=== PATIENT | female | born 1990 | race Caucasian/White ===

== ENCOUNTER 2022-06-30 07:21 | Emergency (ER) | payer OTHER, SELFPAY ==
--- NOTE | ~2022-06-30 | US_ITS ---
EXAMINATION: US ABDOMEN LIMITED CLINICAL INFORMATION: Better evaluate gallbladder. COMPARISON: CT earlier today TECHNIQUE: Real-time imaging of the gallbladder. FINDINGS: GALLBLADDER: Echogenic mobile gallstones are present. Gallbladder wall upper limits of normal in thickness, 3 mm. No reported sonographic Centeno's sign. COMMON BILE DUCT: Normal in caliber measuring 0.4 cm in diameter. US/US abdomen limited IMPRESSION: Gallstones. No reported sonographic Centeno's sign.
--- NOTE | ~2022-06-30 | US_ITS ---
EXAMINATION: US PELVIS CLINICAL INFORMATION: Better evaluation of ovaries COMPARISON: CT earlier today TECHNIQUE: Ultrasound of the pelvis is performed using transabdominal transducer. The patient declined endovaginal imaging. FINDINGS: Uterus: The uterus is anteverted and anteflexed and measures 9.0 x 2.8 x 4.9 cm. The double wall endometrial thickness is 0.6 mm. The uterus is smooth in contour and has normal myometrial echogenicity. No visible fibroid. Adnexa: Neither ovary is seen transabdominally but the right adnexal cyst seen on prior CT scan is noted. It measures 8.8 cm in greatest dimension. It has a simple appearance with no septations or mural nodules. US/US pelvic complete IMPRESSION: 8.8 cm right probable benign adnexal cyst. Recommend follow-up US in 3-6 months. Note: This recommendation does not apply to premenarchal patients and to those with increased risk (genetic, family history, elevated tumor markers or other high-risk factors) of ovarian cancer. Reference: Radiology. 2019 Nov; 293(2):359-371
--- NOTE | ~2022-06-30 | CT_ITS ---
EXAMINATION: CT abdomen pelvis w IV con CLINICAL INFORMATION: Bilateral flank pain. COMPARISON: Prior CT scan from 06/23/2013 TECHNIQUE: Multidetector volumetric imaging was performed from the superior aspect of the liver through the pubic symphysis 100 mL of Omnipaque 350 injected Sagittal and coronal reformatted images were obtained on the technologist's workstation. This CT examination was performed using dose optimization techniques as appropriate, variously including the following: *Automated exposure control *Adjustment of mA and/or kV according to patient size (this includes techniques or standardized protocols for targeted exams where dose is matched to indication/reason for exam; i.e. extremities or head) *Use of iterative reconstruction technique DLP: 1008 mGy-cm FINDINGS: LOWER THORAX: Included lung bases are clear. HEPATOBILIARY: No focal hepatic lesions. No biliary ductal dilatation. GALLBLADDER: Gallbladder is distended. There are probably tiny layering gallstones. SPLEEN: Spleen is normal in size. PANCREAS: No focal mass or ductal dilatation. STOMACH AND GASTROINTESTINAL TRACT: Stomach is grossly unremarkable. There is no bowel distention or thickening. Appendix not visualized might have been removed. There are suture lines in the posterior wall of the cecum. ADRENALS: No adrenal nodules. KIDNEYS/URETERS: No hydronephrosis, stones or solid mass lesions. URINARY BLADDER: Partially decompressed. PELVIC VISCERA: There is a cystic mass in the pelvis right of midline measures 7 x 6.3 cm most likely of right ovarian origin not well evaluated on CT scan, this may require correlation with follow-up ultrasound. PERITONEUM: No free air or fluid. LYMPH NODES: No lymphadenopathy. VASCULAR:Abdominal aorta normal in size, no aneurysm found. BONES, ABDOMINAL WALL AND SOFT TISSUES: Age-appropriate changes of the spine and skeletal system, no destructive osteolytic or osteosclerotic bone lesion found CT/CT abdomen pelvis w IV con IMPRESSION: * No CT evidence of kidney stones or hydronephrosis. * There is a cystic mass in the pelvis right of midline 7 cm most likely of right ovarian origin, not well evaluated on CT scan, recommend attention to correlation with follow-up ultrasound. * Distended gallbladder, there are probably tiny layering gallstones. If patient has pain in the right upper quadrant, this also can be evaluated with ultrasound.
[2022-06-30 07:35] VITALS: BP 147/86; PULSE 102; RESP 14; TEMP 36.6; O2SAT 100; BMI 34.3
--- NOTE | 2022-06-30 08:00 | ED_ITS ---
HPI - General Adult General Chief complaint: Back Pain/Injury Stated complaint: Lower back pain/? Time Seen by Provider: 06/30/22 07:57 Source: patient Mode of arrival: ambulatory Limitations: no limitations History of Present Illness HPI narrative: Patient is a 32 year old assigned female at with no reported medical history presenting to the emergency department today with low back pain. Patient states that for the last 2 weeks she has had low back pain. Patient states that she took 2 at home tests and they were positive but she took another one and now it is negative. Patient states that she passed what looked like a blood clot earlier today and has had light vaginal bleeding since. Patient denies any dizziness, lightheadedness, abdominal pain, nausea, vomiting, fever, chills, blurry vision, double vision, loss of vision, chest pain, difficulty breathing, shortness of breath, night sweats, pain with urination, increased urinary frequency, increased urinary urgency, blood in her urine or stool, syncope or a near syncopal episode, recent trauma or falls, bowel incontinence, bladder incontinence, bowel retention, bladder retention, or any other complaints at this time. Onset (ago): week(s) (2) Location: back Severity: mild Severity scale (1-10): 3 Quality: aching and dull Pain Consistency: constant Relieving factors: none Exacerbating factors: none Associated symptoms: other (vaginal bleeding) Treatments prior to arrival: none Related Data Previous Rx's Medication Instructions Recorded cephalexin 500 mg capsule 500 mg PO Q6H 7 days #28 caps 06/30/22 Allergies Allergy/AdvReac Type Severity Reaction Status Date / Time No Known Allergies Allergy Unverified 02/29/20 15:58 Review of Systems Constitutional: Constitutional: Reports no additional constitutional complaints, Denies chills, Denies fever(s) and Denies night sweats Eyes: Eyes: Reports no additional eye complaints, Denies blurry vision, Denies change in vision, Denies diplopia, Denies eye discharge, Denies loss of vision and Denies eye pain ENT: Denies dizziness Cardiovascular: Cardiovascular: Reports no additional cardiovascular complaints, Denies chest pain, Denies lightheadedness, Denies Loss of Consciousness and Denies dyspnea Respiratory: Respiratory: Reports no additional respiratory complaints and Denies dyspnea Gastrointestinal: Gastrointestinal: Reports no additional gastrointestinal complaints, Denies abdominal pain, Denies melena, Denies hematochezia, Denies change in bowel habits and Denies change in stool character Genitourinary: Genitourinary: Denies hematuria, Denies urinary frequency, Denies dysuria, Denies urinary incontinence, Denies urinary hesitancy and Denies urinary urgency Comments: vaginal bleeding Musculoskeletal: Musculoskeletal: Reports no additional musculoskeletal complaints, Reports back pain, Denies numbness and Denies tingling Neurologic: Denies dizziness, Denies loss of vision, Denies numbness and Denies tingling Psychiatric: Psychiatric: Reports no additional psychiatric complaints Endocrine: Endocrine: Reports no additional endocrine complaints Hematologic/Lymphatic: Hematologic/Lymphatic: Reports no additional h ematologic/lymphatic complaints Allergic/Immunologic: Allergic/Immunologic: Reports no additional allergic/immunologic complaints PMFSH Past Medical History Attestation statement: The following information was validated with the patient. Source: old records reviewed and nursing notes reviewed Social History Social History Alcohol intake: never Smoked in Last 30 Days: No Substance Use Type: Marijuana Advance Directives: No Advance Directives Information Provided: No Patient : No Physical Exam ED Vital Signs: Vital Signs - 24 hr 06/30/22 07:35 06/30/22 10:06 06/30/22 12:21 Temperature 97.9 F 98.1 F 98.0 F Pulse Rate 102 H 93 96 Respiratory Rate 14 18 18 Blood Pressure 147/86 H 139/90 H 140/88 H Pulse Oximetry 100 97 98 Oxygen Delivery Method Room Air Room Air Room Air BMI result Body Mass Index 34.3 Const General: cooperative, no acute distress, alert and awake Nutritional Appearance: well nourished Orientation/consciousness: patient oriented x3 Limitations: no limitations [facility] Head: Yes normal to inspection and Yes atraumatic Ears: hearing grossly normal bilaterally and external ears normal General nose exam: Normal external nose present, no nasal discharge noted and no epistaxis Face and sinus: Yes normal facial exam, No abrasion and No laceration Mouth: Normal oral and palatal mucosa present, no drooling and no muffled voice Eyes General: appearance normal, both eyes and all related structures Periorbital: periorbital findings normal Eyelids: Yes eyelids normal Conjunctivae: conjunctivae normal Pupils: Equal, round and reactive pupils present EOM: EOMs intact bilaterally Neck Neck: Yes normal visual inspection, Yes full ROM and Yes no lymphadenopathy Chest Chest palpation & inspection: normal inspection of the chest Resp Effort & Inspection: normal respiratory effort and able to speak in complete sentences Auscultation: clear to auscultation bilaterally Cardio Rate: regular rate Rhythm: regular rhythm GI Inspection: Yes normal to inspection Palpation (GI): Soft to palpation, not firm, nontender, no guarding and not rigid Neuro General: patient oriented x3 and moves all extremities Cranial nerves: Yes Equal, round and reactive pupils present Cognition (Neuro): normal cognition Motor exam (neuro): 5/5 motor strength present throughout Sensory Exam: Normal double simultaneous stimulation for sensation Coordination: [id number] test normal Extrem General: Yes normal to inspection, Yes full ROM and Yes capillary refill normal Psych Appearance: grossly normal Mental Status: mental status grossly normal Affect: normal affect Attitude: cooperative Thought process: Normal thought process present Thought content: Normal thought content present Insight: Good insight present (Psych) Medications Administered Discontinued Medications Generic Name Dose Route Start Last Admin Trade Name Imer PRN Reason Stop Dose Admin Sodium Chloride 1,000 mls @ 999 mls/hr 06/30/22 09:15 06/30/22 11:14 Ns IV 06/30/22 10:15 Infused .Q1H1M KENZIE Infusion Iohexol 100 ml 06/30/22 09:38 06/30/22 09:39 Iohexol 350 Mg/Ml 100 Ml Infus..Btl IV 06/30/22 09:39 85 ml ONCE ONE Administration Ketorolac Tromethamine 15 mg 06/30/22 11:58 06/30/22 12:14 Ketorolac Tromethamine 15 Mg/Ml Vial IVPUSH 06/30/22 11:59 15 mg ONCE ONE Administration Medical Decision Making Medical Decision Making [facility] Narrative: Patient is a 32 year old assigned female at with no reported medical history presenting to the emergency department today with low back pain. Cecilia ent's physical exam was unremarkable. Patient appeared non-toxic and comfortable. Patient's blood work showed an elevated WBC count of 14.1 but was otherwise unremarkable. Patient's urine showed a possible urinary tract infection. Patient's abdominal / pelvic CT showed a cystic mass in the pelvis ri ght of midline that the radiologist recommended further evaluating with an US as well as gallstones in the gallbladder the radiologist recommended further evaluating with an US. Patient's gallbladder US showed stones in the gallbladder but no signs of any acute processes. Patient's pelvis US showed a 8.8cm right adnexal cyst the radiologist recommends US follow up in 3-6 months. Patient's clinical presentation is most consistent with a right ovarian cyst and possible UTI. Patient is afebrile. Patient is not septic (@1200). I explained my physical exam findings as well as all test results to the patient. I answered all questions asked by the patient. I stressed the importance of the patient taking her medication as prescribed. I stressed the importance of the patient following up with her primary care provider and an OBGYN. I stressed the importance of the patient returning to the emergency department immediately if her symptoms were to worsen or if she were to develop any dizziness, shortness of breath, difficulty breathing, chest pain, blurry vision, loss of vision, nausea, vomiting, abdominal pain, fever, chills, back pain, or any other complaints. Patient verbalized agreement and understanding with this treatment plan and discharge. Differential Diagnosis Differential Diagnoses: The differential diagnosis associated with the presentation includes miscarriage, ovarian cyst, UTI Lab Data MDM Lab Attestation statement: I reviewed the patient's lab results. 06/30/22 08:21 06/30/22 08:21 Labs: Lab Results 06/30/22 06/30/22 06/30/22 Range/Units 08:21 08:21 09:45 WBC 14.1 H (4.8-10.8) X10*3/uL RBC 4.66 (4.20-5.50) X10*6/uL Hgb 13.0 (12.0-16.0) g/dl Hct 41.4 (37.0-47.0) % MCV 88.8 (80.0-98.0) fL MCH 27.9 (27.0-33.0) pg MCHC 31.4 (31.0-35.0) g/dl RDW 13.4 (11.0-16.0) % Plt Count 322 (160-400) X10*3/uL MPV 9.5 (9.4-12.3) fL Immature Gran % (Auto) 0.4 (0.0-0.4) % Neut % (Auto) 75.2 H (45-73) % Lymph % (Auto) 17.4 L (20-40) % [place] % (Auto) 5.6 (2-11) % Eos % (Auto) 1.0 (0-4) % Baso % (Auto) 0.4 (0-2) % Lymph # (Auto) 2.5 (1.2-4.9) X10*3/uL [place] # (Auto) 0.8 (0.1-1.2) X10*3/uL Eos # (Auto) 0.1 (0.0-0.4) X10*3/uL Baso # (Auto) 0.1 (0.0-0.2) X10*3/uL Abs Immat Gran (auto) 0.06 H (0.00-0.03) X10*3/uL Absolute Neuts (auto) 10.6 H (2.0-8.3) x10*3/uL Absolute Nucleated RBC 0.000 (0.0-0.012) X10*3/uL Nucleated RBC % (auto) 0.0 (0.0-0.2) /100WBC Sodium 140 (135-145) mmol/L Potassium 4.1 (3.3-5.1) mmol/L Chloride 104 (96-108) mmol/L Carbon Dioxide 26 (22-29) mmol/L Anion Gap 14 (12-20) BUN 9 (9-16) mg/dL Creatinine 0.66 (0.5-1.4) mg/dL Estim Creat Clear Calc 133.5 Estimated GFR > 60 Random Glucose 91 (60-115) mg/dL Calcium 8.9 (8.4-10.2) mg/dL Total Bilirubin 0.5 (0.0-1.0) mg/dL AST 65 H (5-31) U/L ALT 116 H (0-31) U/L Alkaline Phosphatase 80 (39-117) U/L Total Protein 7.5 (6.5-8.0) g/dL Albumin 3.9 (3.5-5.0) g/dL Beta HCG, Quant < 2 mIU/mL Urine Color RED Urine Appearance Cloudy Urine pH 6.0 (5.0-9.0) Ur Specific [place] 1.015 (1.005-1.025) Urine Protein Negative (Neg-Trace) mg/dL Urine Glucose (UA) Negative (Negative) mg/dL Urine Ketones Negative (Negative) mg/dL Urine Blood Large (3+) H (Negative) Urine Nitrite Negative (Negative) Ur Leukocyte Esterase Moderate (2+) H (Negative) Urine RBC >20 H (0-2) /HPF Urine WBC 6-10 (0-5) /HPF Ur Squamous Epith Cells 0-2 (0-2) /HPF Urine Bacteria Trace (None Seen) Hyaline Casts 0-2 (0-2) /LPF Radiology Impression Discussion of test interpretation with radiology: I have reviewed the radiologist's reading. Radiologist Impression: My interpretation is in agreement with the radiologist's impression of these imaging studies. EXAMINATION: CT abdomen pelvis w IV con CLINICAL INFORMATION: Bilateral flank pain. COMPARISON: Prior CT scan from 06/23/2013 TECHNIQUE: Multidetector volumetric imaging was performed from the superior aspect of the liver through the pubic symphysis 100 mL of Omnipaque 350 injected? Sagittal and coronal reformatted images were obtained on the technologist's workstation. ? This CT examination was performed using dose optimization techniques as appropriate, variously including the following: *Automated exposure control *Adjustment of mA and/or kV according to patient size (this includes techniques or standardized protocols for targeted exams where dose is matched to indication/reason for exam; i.e. extremities or head) *Use of iterative reconstruction technique DLP: 1008 mGy-cm FINDINGS: LOWER THORAX: Included lung bases are clear. HEPATOBILIARY: No focal hepatic lesions. No biliary ductal dilatation. GALLBLADDER: Gallbladder is distended. There are probably tiny layering gallstones. SPLEEN: Spleen is normal in size. PANCREAS: No focal mass or ductal dilatation. STOMACH AND GASTROINTESTINAL TRACT: Stomach is grossly unremarkable. There is no bowel distention or thickening. Appendix not visualized might have been removed. There are suture lines in the posterior wall of the cecum. ADRENALS: No adrenal nodules. KIDNEYS/URETERS: No hydronephrosis, stones or solid mass lesions. URINARY BLADDER: Partially decompressed. PELVIC VISCERA: There is a cystic mass in the pelvis right of midline measures 7 x 6.3 cm most likely of right ovarian origin not well evaluated on CT scan, this may require correlation with follow-up ultrasound. PERITONEUM: No free air or fluid. LYMPH NODES: No lymphadenopathy. VASCULAR:Abdominal aorta normal in size, no aneurysm found. BONES, ABDOMINAL WALL AND SOFT TISSUES: Age-appropriate changes of the spine and skeletal system, no destructive osteolytic or osteosclerotic bone lesion found CT/CT abdomen pelvis w IV con IMPRESSION: ? *? No CT evidence of kidney stones or hydronephrosis. ? *? There is a cystic mass in the pelvis right of midline 7 cm most likely of right ovarian origin, not well evaluated on CT scan, recommend attention to correlation with follow-up ultrasound. ? *? Distended gallbladder, there are probably tiny layering gallstones. If patient has pain in the right upper quadrant, this also can be evaluated with ultrasound. Dictated By: Pérez Almonte MD Signed By: Electronically signed by Pérez Almonte MD 06/30/22 1016 EXAMINATION: US ABDOMEN LIMITED CLINICAL INFORMATION: Better evaluate gallbladder. COMPARISON: CT earlier today TECHNIQUE: Real-time imaging of the gallbladder. FINDINGS: GALLBLADDER: Echogenic mobile gallstones are present. Gallbladder wall upper limits of normal in thickness, 3 mm. No reported sonographic Centeno's sign. COMMON BILE DUCT: Normal in caliber measuring 0.4 cm in diameter. US/US abdomen limited IMPRESSION: Gallstones. No reported sonographic Centeno's sign. Dictated By: Leland Avery MD Signed By: Electronically signed by Leland Avery MD 06/30/22 1143 EXAMINATION:? US PELVIS CLINICAL INFORMATION:? Better evaluation of ovaries COMPARISON: CT earlier today TECHNIQUE: Ultrasound of the pelvis is performed using transabdominal transducer. The patient declined endovaginal imaging. FINDINGS: Uterus: The uterus is anteverted and anteflexed and measures 9.0 x 2.8 x 4.9 cm.? The double wall endometrial thickness is 0.6 mm.? The uterus is smooth in contour and has normal myometrial echogenicity. ? No visible fibroid. Adnexa: Neither ovary is seen transabdominally but the right adnexal cyst seen on prior CT scan is noted. It measures 8.8 cm in greatest dimension. It has a simple appearance with no septations or mural nodules. US/US pelvic complete IMPRESSION: 8.8 cm right probable benign adnexal cyst. Recommend follow-up US in 3-6 months. ? Note: This recommendation does not apply to premenarchal patients and to those with increased risk (genetic, family history, elevated tumor markers or other high-risk factors) of ovarian cancer. Reference: Radiology. 2019 Apr; 293(2):359-371 Dictated By: Leland Avery MD Signed By: Electronically signed by Leland Avery MD 06/30/22 1149 Discharge Plan Discharge Clinical Impression: Urinary tract infection, Ovarian cyst Patient Disposition: Home, Self-Care Instructions: Ovarian Cyst (ED), Urinary Tract Infection in Women (ED) Additional Instructions: Follow up with your primary care provider and an OBGYN. Return to the emergency department immediately if your symptoms worsen or if you develop any dizziness, shortness of breath, difficulty breathing, chest pain, blurry vision, loss of vision, nausea, vomiting, abdominal pain, fever, chills, back pain, or any other complaints. Prescriptions: New cephalexin 500 mg capsule 500 mg PO Q6H 7 Days Qty: 28 0RF Referrals: [facility] Family Medicine [Provider Group] (Call to establish and follow up with a primary care provider, if you already have a primary care provider, please follow up with them. ) [facility] Primary Care, [place] [Provider Group] (Call to establish and follow up with a primary care provider, if you already have a primary care provider, please follow up with them. ) [facility] Primary Care,Iain [Provider Group] (Call to establish and follow up with a primary care provider, if you already have a primary care provider, please follow up with them. ) Joe Braga MD [Physician] - (Call to establish and follow up with an OBGYN. ) Interventions: ED Discharge Assessment Last Done: 06/30/22 12:25 Print Language: Urdu
--- NOTE | 2022-06-30 08:25 | PC.NURSE ---
patient a/ox4 . dimitris . heart rate regular at 99 beats per minute . breathing even and unlabored . lungs clear throughout . skin pink warm and dry . abdomen soft . positive bowel sounds in all four quadrants . rebound tenderness noted bilaterally in right and left flank area 8 out of 10 rajan reported by patient .patient reports only presenting for pain in left flank area for last two weeks . labs obtained and sent . patient aware of need of urine . patient aware of plan of care .
[2022-06-30 08:26] LABS: MANUAL DIFF FLAG NO
[2022-06-30 08:27] LABS: Basophils Absolute Auto 0.1 X10*3/uL (0.0-0.2); Basophils Percent Auto 0.4 % (0-2); Eosinophils Absolute Auto 0.1 X10*3/uL (0.0-0.4); Hematocrit 41.4 % (37.0-47.0); Imm Gran Abs Auto 0.06 X10*3/uL (0.00-0.03); Imm Gran Pct Auto 0.4 % (0.0-0.4); Lymphocytes Absolute Auto 2.5 X10*3/uL (1.2-4.9); Lymphocytes Percent Auto 17.4 % (20-40); Mean Corpuscular HGB Conc 31.4 g/dl (31.0-35.0); Mean Corpuscular Hemoglobin 27.9 pg (27.0-33.0); Mean Corpuscular Volume 88.8 fL (80.0-98.0); Mean Platelet Volume 9.5 fL (9.4-12.3); Monocytes Absolute Auto 0.8 X10*3/uL (0.1-1.2); Monocytes Percent Auto 5.6 % (2-11); Neutrophils Absolute Auto 10.6 x10*3/uL (2.0-8.3); Neutrophils Percent Auto 75.2 % (45-73); Platelet Count 322 X10*3/uL (160-400); Red Blood Count 4.66 X10*6/uL (4.20-5.50); Red Cell Distribution Width 13.4 % (11.0-16.0); White Blood Count 14.1 X10*3/uL (4.8-10.8)
[2022-06-30 08:52] LABS: Alanine Aminotransferase 116 U/L (0-31); Albumin Level 3.9 g/dL (3.5-5.0); Alkaline Phosphatase 80 U/L (39-117); Anion Gap 14 (12-20); Aspartate Amino Transferase 65 U/L (5-31); Bilirubin Total 0.5 mg/dL (0.0-1.0); Blood Urea Nitrogen 9 mg/dL (9-16); Calcium 8.9 mg/dL (8.4-10.2); Carbon Dioxide 26 mmol/L (22-29); Chloride 104 mmol/L (96-108); Creatinine Clr Calc Pharmacy 133.5; Estimated Glomerular Filt Rate > 60; Glucose Random 91 mg/dL (60-115); Potassium 4.1 mmol/L (3.3-5.1); Sodium 140 mmol/L (135-145); Total Protein 7.5 g/dL (6.5-8.0)
[2022-06-30 08:59] LABS: HCG Quantitative < 2 mIU/mL
[2022-06-30] MEDS: iohexoL 350 MG/ML 100 ML INFUS..BTL IV (09:39)
--- NOTE | 2022-06-30 09:45 | PC.NURSE ---
DR Dipti Braga at bedside for consult and exam . patient aware of plan of care .
[2022-06-30 10:06] VITALS: BP 139/90; PULSE 93; RESP 18; TEMP 36.7; O2SAT 97
[2022-06-30] MEDS: 0.9 % Sodium Chloride 1,000 ML 999 ML IV (10:08)
[2022-06-30 10:09] LABS: Appearance Urine Cloudy; Glucose Urine UA Negative (Negative); Leukocyte Esterase Urine Moderate (2+) (Negative); Nitrite Urine Negative (Negative); Specific Gravity - Urine 1.015 (1.005-1.025); UMIC TRIGGER UACC YES; Urine Blood Large (3+) (Negative); Urine Ketones Negative (Negative); Urine Protein Negative (Neg-Trace)
[2022-06-30 10:10] LABS: Color Urine RED
[2022-06-30 10:27] LABS: RBC Urine >20 /HPF (0-2)
[2022-06-30 10:28] LABS: Bacteria Urine Trace (None Seen); Hyaline Casts Urine 0-2 /LPF (0-2); Squamous Epithelial Cell Urine 0-2 /HPF (0-2); UACC Culture Trigger YES
[2022-06-30] MEDS: Ketorolac Tromethamine 15 MG/ML VIAL IVPUSH (12:14)
[2022-06-30 12:21] VITALS: BP 140/88; PULSE 96; RESP 18; TEMP 36.7; O2SAT 98
--- NOTE | 2022-06-30 12:23 | PC.NURSE ---
Patient a/ox4 . VSS . Went over discharge instructions as ordered by provider . patient given contact information for follow up with OBGYN . Patient to return if symptoms worsen .no questions at this time .
== END 2022-06-30 12:25 | disposition home or self-care (01) ==
PROVIDERS: Physician Assistant Medical; Emergency Provider Emergency Medicine
DX: N80.101 Endometriosis of right ovary, unspecified depth (principal); N39.0 Urinary tract infection, site not specified; N93.9 Abnormal uterine and vaginal bleeding, unspecified; M54.50 Low back pain, unspecified; R10.2 Pelvic and perineal pain; Z79.899 Other long term (current) drug therapy
CPT/HCPCS: 36415; 74177; 76705; 76856; 80053; 81001; 81003; 84702; 85025; 87086; 87088; 87186; 96361; 96374; 99284; 99285; J1885; Q9967

== ENCOUNTER 2022-07-14 09:45 | Outpatient (REF) | payer OTHER, SELFPAY ==
[2022-07-14 19:25] LABS: CT PCR NOT DETECTED (Not Detect.); NG PCR NOT DETECTED (Not Detect.)
== END 2022-07-14 09:46 | disposition home or self-care (01) ==
LOC: HO.LNP 09:45
PROVIDERS: Visit Provider Obstetrics & Gynecology
DX: N39.0 Urinary tract infection, site not specified (principal); N83.209 Unspecified ovarian cyst, unspecified side; K80.20 Calculus of gallbladder without cholecystitis without obstruction
CPT/HCPCS: 0353U; 87086; 87088; 87186; 99202

== ENCOUNTER 2025-03-02 10:07 | Outpatient (REF) | payer OTHER, SELFPAY ==
--- OUTSIDE RECORDS SUMMARY | 2025-03-02 09:00 | XMS_ITS | Encounter Summary ---
Author Organization [employer] Address [address] [facility] [address] [place] [address] Care Team Providers Care Chain Mortiser Operator Name Role Phone Lashay Farooq Primary Care Provider Reason for Referral * Imaging (Urgent) - Pending Review Specialty Diagnoses / Procedures Referred By Kyleigh alarcon Referred To Contact Radiology Diagnoses Right upper quadrant abdominal pain Procedures US Abdomen Limited Lashay Farooq FNP [address] [place] [address] Phone: tel: fax: Referral ID Status Reason Start Date Expiration Date V isits Requested Visits Authorized [id number] Pending Review 03/02/2025 03/02/2026 1 1 Encounter Details Date Type Department Care Team ([facility] st Contact Info) Description 03/02/2025 9:00 AM EDT Office Visit [facility] [address] [place] [address] Lashay Farooq FNP [address] [place], [place] [phone] Depression, unspecified depression type (Primary Dx); Anxiety; Bipolar affective disorder in remission (CMS/HCC); Lumbar radiculopathy; Right upper quadrant abdominal pain; Healthcare maintenance Social History Tobacco Use Types Packs/Day Years Used Date Smoking Tobacco: Never Assessed Depression Answer Date Recorded Patient Health Questionnaire-9 Score 5 03/02/2025 Patient Health Questionnaire-9 Score 5 03/02/2025 Last PHQ-9: Questionnaire Data Not on file 0 03/02/2025 Housing Stability Answer Date Recorded What is your housing situation today? I have allison garnica 02/23/[address] you li ve. Do you have problems with any of the following? None of the above 02/23/2025 Food Insecurity Answer Date Recorded Within the past 12 months, y ou worried that your food would run out before you got money to buy more: Never True 02/23/2025 Within the past 12 months,th e food you bought just didn't last and you didn't have enough money to get more: Never True 05/2025 Transportation Answer Date Recorded In the past 12 months, has l ack of transportation kept you from medical appts, meetings, work or from getting things needed for daily living? No 02/23/2025 Utilities Answer Date Recorded In the past 12 months, has t he electric, gas, oil or water company threatened to shut off services in your home? No 02/23/2025 Depression Answer Date Recorded Patient Health Questionnaire-2 Score 0 03/02/2025 Internet Access Answer Date Recorded Internet Access Q1 Yes 02/23/2025 Internet Access Q2 Not on file 02/23/2025 Comments Unknown Sex and Gender Information Value Date Recorded Sex Assigned at Female 04/13/2022 10:17 AM EDT Legal Sex Female 10:17 AM EDT Gender Identity Female 04/13/2022 10:17 AM EDT Sexual Orientation Straight 04/13/2022 10 :17 AM EDT documented as of this encounter Last Filed Vital Signs Vital Sign Reading Time Taken Comments Blood Pressure 132/81 03/02/2025 9:10 AM EDT Pulse 94 03/02/2025 9:10 AM EDT Temperature 36.8 C (98.2 F) 03/02/2025 9:10 AM EDT Respiratory Rate 21 03/02/2025 9:10 AM EDT Oxygen Saturation 98% 03/02/2025 9:10 AM EDT Inhaled Oxygen Concentration - - Weight 112 kg (246 lb) 03/02/2025 9:10 AM EDT Height 165.1 cm (5' 5 ) 03/02/2025 9:10 AM EDT Body Mass Index 40.94 03/02/2025 9:10 AM EDT documented in this encounter Functional Status * Over the past 2 weeks, how often have you been bothered by any of the following problems? Question Answer Date of Assessment Author Patient Health Questionnaire-2 Score 0 02/12 10:04 AM Nolvia Grullon MA * Little interest or pleasure in doing things Answer Date of Assessment Author Not at all 03/02/2025 10:04 AM Marie Grullon MA * Feeling down, depressed, or hopeless Answer Date of Assessment Author Not at all 03/02/2025 10:04 AM Marie Grullon MA * Trouble falling or staying asleep, or sleeping too much Answer Date of Assessment Author More than half the days 03/02/2025 10:04 AM Nolvia Grullon MA * Feeling tired or having little energy Answer Date of Assessment Author Several days 03/02/2025 10:04 AM Marie Grullon MA * Poor appetite or overeating Answer Date of Assessment Author Not at all 03/02/2025 10:04 AM Marie Grullon MA * Feeling bad about yourself - or that you are a failure or have let yourself or your family down Answer Date of Assessment Author Several days 03/02/2025 10:04 AM Marie Grullon MA * Trouble concentrating on things, such as reading the newspaper or watching television Answer Date of Assessment Author Several days 03/02/2025 10:04 AM Marie Grullon MA * Moving or speaking so slowly that other people could have noticed? Or the opposite - being so fidgety or restless that you have been moving around a lot more than usual. Answer Date of Assessment Author Not at all 03/02/2025 10:04 AM Marie Grullon MA * Thoughts that you would be better off or hurting yourself in some way Answer Date of Assessment Author Not at all 03/02/2025 10:04 AM Marie Grullon MA * Patient Health Questionnaire-9 Score Answer Date of Assessment Author 5 03/02/2025 10:04 AM Marie Grullon MA * How difficult have these problems made it for you to do your work, take care of things at home, or get along with other people? Answer Date of Assessment Author Not difficult at all 03/02/2025 10:04 AM EDT Nolvia Turk MA * Over the last 2 weeks, how often have you been bothered by any of the following problems? Question Answer Date of Assessment Author Feeling nervous, anxious, or on edge 1 02/12 9:21 AM EDT Nolvia Donahue MA Not being able to stop or co ntrol worrying 1 03/02/2025 9:21 AM EDT Nolvia Donahue MA Worrying too much about diff erent things 1 03/02/2025 9:21 AM EDT Nolvia Donahue MA Trouble relaxing 1 03/02/2025 9:21 AM EDT R Nolvia andre MA Being so restless that it is hard to sit still 1 03/02/2025 9:21 AM ZOËT Nolvia Donahue MA Becoming easily annoyed or irritable 0 02/12 9:21 AM EDT Nolvia Donahue MA Feeling afraid as if somethi ng awful might happen 1 03/02/2025 9:21 AM ZOËT Nolvia Donahue MA BRANDY-7 Total Score 6 03/02/2025 9:21 AM ZOËT Nolvia Donahue MA documented as of this encounter Plan of Treatment Upcoming Encounters Date Type Department Care Team (Late st Contact Info) Description 03/14/2025 2:00 PM EDT Telemedicine [facility] [address] [place] [address] Lashay Farooq FNP [address] [place] [address] Scheduled Orders Name Type Priority Associated Diagnoses Orde r Schedule US Abdomen Limited Imaging Urgent Right upper quadrant abdominal pain Expected: 03/02/2025, Expires: 03/02/2026 Hepatitis C Viral RNA, Quantitative, Real-Time PCR Lab Routine Healthcare maintenance Expected: 03/02/2025 (Approximate), Expires: 03/02/2026 RPR (Monitor) with Reflex to Titer Lab Routine Healthcare maintenance Expected: 03/02/2025 (Approximate), Expires: 03/02/2026 HIV-1/2 Antigen and Antibodies, Fourth Generation, with Reflexes Lab Routine Healthcare maintenance Expected: 03/02/2025 (Approximate), Expires: 03/02/2026 Lipid Panel, Standard Lab Routine Healthcare maintenance Expected: 03/02/2025 (Approximate), Expires: 03/02/2026 Hemoglobin A1c Lab Routine Healthcare maintenance Expected: 03/02/2025 (Approximate), Expires: 03/02/2026 TSH with Reflex to Free T4 Lab Routine Healthcare maintenance Expected: 03/02/2025 (Approximate), Expires: 03/02/2026 Comprehensive Metabolic Panel Lab Routine Healthcare maintenance Expected: 03/02/2025 (Approximate), Expires: 03/02/2026 CBC auto differential Lab Routine Healthcare maintenance Expected: 03/02/2025, Expires: 03/02/2026 hCG, Total, Quantitative Lab Routine Healthcare maintenance Expected: 03/02/2025 (Approximate), Expires: 03/02/2026 Chlamydia/N. Gonorrhoeae, PCR, Urine Lab Routine Healthcare maintenance Expected: 03/02/2025 (Approximate), Expires: 03/02/2026 Hepatitis B Core Antibody, Total Lab Routine Healthcare maintenance Expected: 03/02/2025 (Approximate), Expires: 03/02/2026 Hepatitis B Surface Antibody, Qualitative Lab Routine Healthcare maintenance Expected: 03/02/2025 (Approximate), Expires: 03/02/2026 Hepatitis B surface antigen, EIA Lab Routine Healthcare maintenance Expected: 03/02/2025 (Approximate), Expires: 03/02/2026 Urinalysis, Complete, with Reflex to Culture Lab Routine Healthcare maintenance Expected: 03/02/2025 (Approximate), Expires: 03/02/2026 documented as of this encounter Visit Diagnoses Diagnosis Depression, unspecified depression type- Primary Anxiety Anxiety state, unspecified Bipolar affective disorder in remission (CMS/HCC) Lumbar radiculopathy Thoracic or lumbosacral neuritis or radiculitis, unspecified Right upper quadrant abdominal pain Healthcare maintenance documented in this encounter Additional Health Concerns Assessment Noted Time PHQ-9 Depression Total Score: 5 03/02/20 25 10:04 AM EDT documented as of this encounter Care Teams Chain Mortiser Operator Relationship Specialty Start Date End Date Lashay Farooq FNP [address] [place] [id number] PCP - General Family Medicine 03/02/25 documented as of this encounter
--- OUTSIDE RECORDS SUMMARY | 2025-03-02 10:42 | XMS_ITS | Clinical Summary ---
Author Organization [facility] ity Address [address] [place] [address] Care Team Providers Care Sales Development Director Name Role Phone Regina Murrieta MD Primary Care Provider [phone] Surgical History Surgery Date Site/Laterality Comments APPENDECTOMY 2002 PROCEDURE: DC APPENDECTOMY TONSILLECTOMY ADENOIDECTOMY, BILATERAL MYRINGOTOMY AND TUBES PROCEDURE: DC TONSILLECTOMY & ADENOIDECTOMY <AGE 12 Medical History Medical History Date Comments Anxiety state DX:Anxiety state Abnormal cytological finding in specimen from cervix DX:Abnormal cytological find ing in specimen from cervix Depression DX:Depression PTSD (post-traumatic stress disorder) DX:PTSD (post-traumatic stress disorder) Family History Medical History Relation Name Comments Diabetes Father Hypertension Father Arthritis Maternal Grandmother Stroke Mother Breast cancer Neg Hx Colon cancer Neg Hx Ovarian cancer Neg Hx Prostate cancer Neg Hx Relation Name Status Comments Father Maternal Grandmother Mother Social History Tobacco Use Types Packs/Day Years Used Date Smoking Tobacco: Some Days Smokeless Tobacco: Never Alcohol Use Standard Drinks/Week Comments No 0 (1 standard drink = 0.6 oz pur e alcohol) Comments Unknown Sex and Gender Information Value Date Recorded Sex Assigned at Not on file Legal Sex Female 8:52 AM EST Gender Identity Not on file Sexual Orientation Not on file Obstetrics History Plan of Treatment Health Maintenance Due Date Last Done Comments Hepatitis B Vaccines (1 of 3 - 19+ 3-dose series) 2009 Cervical Cancer Screening: P ap Smear 2011 Depression Screening 06/14/2024 COVID-19 Vaccine (2023-2 5 season) 2025 Influenza Vaccine (#1) 2025 05/18/2018 DTaP,Tdap,and Td Vaccines (2 - Td or Tdap) 08/15/2028 08/15/2018 RSV Immunization Adult Patie nts (1 - 1-dose 75+ series) 2065 HIB Vaccines Aged Out No longer eligi ble based on patient's age to complete this topic HPV Vaccines Aged Out No longer eligi ble based on patient's age to complete this topic Hepatitis A Vaccines Aged Out No long er eligible based on patient's age to complete this topic IPV Vaccines Aged Out No longer eligi ble based on patient's age to complete this topic MMR Vaccines Aged Out No longer eligi ble based on patient's age to complete this topic Meningococcal ACWY Vaccine Aged Out N o longer eligible based on patient's age to complete this topic Meningococcal B Vaccine Aged Out No l onger eligible based on patient's age to complete this topic Pneumococcal Vaccine: Pediat rics (0 to 5 Years) and At-Risk Patients (6 to 49 Years) Aged Out No longer eligi ble based on patient's age to complete this topic RSV Immunization Patients Un julia 20 months Aged Out No longer eligible b ased on patient's age to complete this topic Varicella Vaccines Aged Out No longer eligible based on patient's age to complete this topic Care Teams Sales Development Director Relationship Specialty Start Date End Date Regina Murrieta MD [address] [place] [phone] PCP - General 04/03/14
--- OUTSIDE RECORDS SUMMARY | 2025-03-02 10:42 | XMS_ITS | Encounter Summary ---
Author Organization [employer] Address [address] [place] [address] Care Team Providers Care Etiquette Teacher Name Role Phone Lashay Farooq OKSANA Primary Care Provider [phone] Encounter Details Date Type Department Care Team (Latest Contact Info) Description 03/02/2025 Travel Social History Tobacco Use Types Packs/Day Years [...] AM EDT documented as of this encounter Functional Status * Over the past 2 weeks, how often have you been bothered by any of the following problems? Question Answer Date of Assessment Author Patient Health Questionnaire-2 Score 0 02/12 10:04 AM EDT Nolvia Donahue MA * Little interest or pleasure in doing things Answer Date of Assessment Author Not at all 03/02/2025 10:04 AM EDT Marie Donahue MA * Feeling down, depressed, or hopeless Answer Date of Assessment Author Not at all 03/02/2025 10:04 AM ZOËT Marie Donahue MA * Trouble falling or staying asleep, or sleeping too much Answer Date of Assessment Author More than half the days 03/02/2025 10:04 AM EDT Nolvia Donahue MA * Feeling tired or having little [...] Assessment Author Several days 03/02/2025 10:04 AM EDMarie Gambino MA * Trouble concentrating on things, such [...] Author Not at all 03/02/2025 10:04 AM EDT Marie Donahue MA * Patient Health Questionnaire-9 Score Answer [...] or on edge 1 02/12 9:21 AM ZOËT Nolvia Donahue MA Not being able to stop or co ntrol worrying 1 03/02/2025 9:21 AM ZOËT Nolvia Donahue MA Worrying too much about diff erent things 1 03/02/2025 9:21 AM EDT Nolvia Donahue MA Trouble relaxing 1 03/02/2025 9:21 AM EDT Nolvia Moore MA Being so restless that it is hard to sit still 1 03/02/2025 9:21 AM Nolvia Grullon MA Becoming easily annoyed or irritable 0 02/12 9:21 AM ZOËT Nolvia Donahue MA Feeling afraid as if somethi ng awful might happen 1 03/02/2025 9:21 AM ZOËT Nolvia Donahue MA BRANDY-7 Total Score 6 03/02/2025 9:21 AM ZOËT Nolvia Donahue MA documented as of this encounter Plan of Treatment Upcoming Encounters Date Type Department Care Team (Late st Contact Info) Description 03/14/2025 2:00 PM EDT Telemedicine [facility] MED[facility] [address] [place] [address] Lashay Farooq FNP [address] [place] [address] documented as of this encounter Visit Diagnoses Not on filedocumented in this encounter Additional Health Concerns Assessment Noted Time PHQ-9 Depression Total Score: 5 03/02/20 25 10:04 AM EDT documented as of this encounter Care Teams Etiquette Teacher Relationship Specialty Start Date End Date Lashay Farooq FNP [address] [place] [address] PCP - General Family Medicine 03/02/25 documented as of this encounter
--- OUTSIDE RECORDS SUMMARY | 2025-03-02 10:42 | XMS_ITS | Encounter Summary ---
Author Organization [employer] Address [address] [place] [address] Care Team Providers Care Manager Motor Name Role Phone Unavailable Primary Care Provider Unavailabl e Encounter Details Date Type Department Care Team (Latest Contact Info) Description 03/01/2025 Travel Social History Tobacco Use Types Packs/Day Years Used Date Smoking Tobacco: Never Assessed Depression Answer Date Recorded Patient Health Questionnaire-9 Score 5 03/02/2025 Patient Health Questionnaire-9 Score 5 03/02/2025 Last PHQ-9: Questionnaire Data Not on file 0 03/02/2025 Housing Stability Answer Date Recorded What is your housing situation today? I have allison nahun 02/23/[address] you li [...] AM EDT documented as of this encounter Plan of Treatment Upcoming Encounters Date Type Department Care Team (Late st Contact Info) Description 03/14/2025 2:00 PM EDT Telemedicine [facility] MEDICINE [address] [place] [address] Lashay Farooq FNP [address] [place] [address] documented as of this encounter Visit Diagnoses Not on filedocumented in this encounter
--- OUTSIDE RECORDS SUMMARY | 2025-03-02 10:42 | XMS_ITS | Clinical Summary ---
Author Organization [employer] Address [address] [facility] 7t [place] [address] Care Team Providers Care Core Man Name Role Phone Lashay Farooq Primary Care Provider [phone] Allergies No known active allergies Medications fluticasone (Flonase) 50 MCG/ACT nasal spray INHALE 2 SPRAYS INTO BOTH NOSTRILS EVERY DAY, NEEDED FOR ALLERGY SYMPTOMS 4 Active gabapentin (Neurontin) 600 MG tablet Take 1 tablet by mouth every 6 (six) hours during the day. 5 Active hydrOXYzine HCl (Atarax) 25 MG tablet Take 25 mg by mouth if needed at bedtime. 5 Active loratadine (Claritin) 10 MG tablet TAKE 1 TABLET BY MOUTH DAILY, NEEDED FOR ALLERGY SYMPTOMS 4 Active multivitamin () 27-0.8 MG tablet Take 1 tablet by mouth Once per day. 5 Active albuterol 108 (90 Base) MCG/ACT inhaler Inhale 2 puffs every 4 (four) hours if needed for wheezing or shortness of breath. 18 g 1 5 03/02/20 26 Active Active Problems Problem Noted Date Diagnosed Date Anemia 03/02/2025 Asthma 03/02/2025 Depression 03/02/2025 Anxiety 03/02/2025 Bipolar affective disorder in remission 03/02/20 25 Lumbar radiculopathy 03/02/2025 Encounters Date Type Department Care Team Description 03/02/2025 9:00 AM EDT Office Visit [facility] [address] [address] Lashay Farooq FNP Depression, unspecified depression type (Primary Dx); Anxiety; Bipolar affective disorder in remission (CMS/HCC); Lumbar radiculopathy; Right upper quadrant abdominal pain; Healthcare maintenance 03/02/2025 Travel 03/01/2025 Travel 02/23/2025 Patient Outreach [facility] [address] [place] [address] Tal Wagner MD Pre-visit Planning (SDOH screening negative and Tobacco screening negative) 12/11/2024 Telephone [facility] [address] [place] [address] Tal Wagner MD CHW - New Patient Assistance from Last 3 Months Immunizations Immunization Administration Dates Next Due Hep B, Adolescent or Pediatric 06/26/2002,2001,10/13/2000 IPV 09/26/1994,08/13/1991,1990 ,1990 Influenza, IIV3, injectable 05/18/2018, 6,03/06/2014 MMR 09/26/1994,06/28/1991 Td (adult), unspecified 03/03/2002 Tdap 08/15/2018,02/27/2013 Varicella 07/30/1998 Family History Medical History Relation Name Comments Asthma Daughter Kylia Learning disabilities Daughter Kylia pacemaker Father Diabetes Father's Brother Depression Mother Francesca Stroke Mother Francesca Relation Name Status Comments Daughter Kylia Alive Father Father's Brother Unknown Mother Francesca Alive Social History Tobacco Use Types Packs/Day Years [...] Orientation Straight 04/13/2022 10 :17 AM EDT Last Filed Vital Signs Vital Sign Reading [...] Mass Index 40.94 03/02/2025 9:10 AM EDT Plan of Treatment Upcoming Encounters Date Type Department Care Team (Late st Contact Info) Description 03/14/2025 2:00 PM EDT Telemedicine [facility] [address] [place], [place] [id number] Lashay Farooq FNP [address] [place] [address] Health Maintenance Due Date Last Done Comments HIV Screening 1990 Tobacco Screening 2002 Family Planning (PISQ) 2005 HPV Vaccines (1 - 3-dose series) 2005 Hepatitis C Screening 02/08/2008 Pneumococcal Vaccine: Pediatrics (0 to 5 Years) and At-Risk Patients (6 to 49) Years (1 of 2 - PCV) 2009 Pap Smear 2011 Cervical Cancer Screening 03/09/2023 HPV/Cotest 03/09/2023 03/09/2018, 04/13/2016 COVID-19 Vaccine ( - season) 2025 Influenza Vaccine (#1) 2025 8, 04/13/2016, 03/06/2014 Alcohol/Substance Use Screening 03/02/2026 03/02/2025 Depression Screening 03/02/2026 03/02/2025, 03/02/20 25 Disability Screening 03/02/2026 03/02/2025 SDOH Screening 03/02/2026 03/02/2025 DTaP/Tdap/Td Vaccines (4 - Td or Tdap) 08/15/2028 08/15/2018, 02/27/2013, 03/03/2002 Zoster Vaccines (1 of 2) 02/08/2040 RSV Patients and Patients Aged 60 years or older (1 - 1-dose 75+ series) 2065 IPV Vaccines Completed 09/26/1994, 06/1991, 1990, Additional history exists Hepatitis B Vaccines Completed 06/26/2002, 01/31/2002, 10/13/2000 HIB Vaccines Aged Out No longer eligi ble based on patient's age to complete this topic Hepatitis A Vaccines Aged Out No long er eligible based on patient's age to complete this topic Meningococcal B Vaccine Aged Out No l onger eligible based on patient's age to complete this topic Meningococcal Vaccine Aged Out No jose kelsie eligible based on patient's age to complete this topic RSV under 20 months Aged Out No longe r eligible based on patient's age to complete this topic Rotavirus Vaccines Aged Out No longer eligible based on patient's age to complete this topic Procedures Procedure Name Priority Date/Time Associated Diagnosis Comments ZZZ HISTORICAL HPV MRNA E6/E7 Routine 03/09/2018 10:50 AM EDT from Last 3 Months or Most Recently Relevant to Health Maintenance Results * (ABNORMAL) HPV mRNA E6/E7 (03/09/2018 10:50 AM EDT) HPV mRNA E6/E7 DETECTED (AA) NOT DETECTED [facility] Comment: This test was performed using the APTIMA(R) HPV Assay ([employer] This assay detects E6/E7 viral messenger RNA (mRNA) from 14 high-risk HPV types (16,18,31,33,35,39,45,51, 52,56,58,59,66,68). For additional information please refer to: http://education.[employer]/faq/RHB786y0 (This link is being provided for informational/ educational purposes only.) The analytical performance characteristics of this assay have been determined by [employer] [place], [place]. The modifications have not been cleared or approved by the FDA. This assay has been validated pursuant to the CLIA regulations and is used for clinical purposes. Test Performed by [employer] [facility] [place], [address] [place] [address] Jaswinder Leary M.D., Ph.D., Director of Laboratories , CLIA [id number] Please note: Effective 02/24/2016, HPV testing will be performed using [employer]'s APTIMA test which targets mRNA. Detecting mRNA instead of DNA, as in older methods, offers significant improvements in specificity. 03/09/2018 10:5 0 AM EDT us Karina Martins CNM HISTORICAL/NON ORDERABLE LABS Final Result [facility] [address] from Last 3 Months or Most Recently Relevant to Health Maintenance Insurance [facility] < [address] [place] [id number] Care Teams Core Man Relationship Specialty Start Date End Date Lashay Farooq FNP [address] [place] [address] [place] [id number] PCP - General Family Medicine 03/02/25
[2025-03-02 14:36] LABS: MANUAL DIFF FLAG NO
[2025-03-02 14:51] LABS: Hematocrit 38.6 % (37.0-47.0); Hemoglobin 12.1 g/dl (12.0-16.0); Imm Gran Abs Auto 0.04 X10*3/uL (0.00-0.03); Imm Gran Pct Auto 0.3 % (0.0-0.4); Lymphocytes Absolute Auto 2.9 X10*3/uL (1.2-4.9); Mean Corpuscular HGB Conc 31.3 g/dl (31.0-35.0); Mean Corpuscular Hemoglobin 27.6 pg (27.0-33.0); Mean Corpuscular Volume 87.9 fL (80.0-98.0); NRBC Abs Auto 0.000 X10*3/uL (0.0-0.012); NRBC Pct Auto 0.0 /100WBC (0.0-0.2); Platelet Count 334 X10*3/uL (160-400); Red Blood Count 4.39 X10*6/uL (4.20-5.50); White Blood Count 12.4 X10*3/uL (4.8-10.8)
[2025-03-02 15:01] LABS: Hemoglobin A1C 104.9682 umol/L; Total Hemoglobin (HGBA1C) 3134.5371 umol/L
[2025-03-02 15:04] LABS: Alanine Aminotransferase 31 U/L (0-31); Albumin Level 4.4 g/dL (3.5-5.0); Alkaline Phosphatase 73 U/L (39-117); Anion Gap 11 (12-20); Aspartate Amino Transferase 32 U/L (5-31); Blood Urea Nitrogen 10 mg/dL (9-16); Calcium 9.1 mg/dL (8.4-10.2); Carbon Dioxide 25 mmol/L (22-29); Chloride 108 mmol/L (96-108); Cholesterol 183 mg/dL (<200); Estimated Glomerular Filt Rate > 60; HDL Cholesterol 46 mg/dL (>40); Potassium 3.9 mmol/L (3.3-5.1); Sodium 140 mmol/L (135-145); Total Protein 7.8 g/dL (6.5-8.0); Triglycerides 118 mg/dL (<150)
[2025-03-03 09:15] LABS: HBc Num1 0.10 S/CO (0.00-0.79); HBsAGNum1 0.35 S/CO (0.00-0.99); Hepatitis B Surface Antigen Negative (Negative)
[2025-03-03 09:56] LABS: HIV Num 1 0.06 S/CO (0.00-0.99)
[2025-03-03 11:29] LABS: HBS Num1 0.76 mIU/mL (0-7.99); ~Hepatitis B Surface Antibody NONREACTIVE (Nonreactive)
[2025-03-03 18:09] LABS: HCV Log PCR <1.18 NOT DETECTED Log IU/mL (NOT DETECTED); HepC Viral Load <15 NOT DETECTED IU/mL (NOT DETECTED)
== END 2025-03-02 10:08 | disposition home or self-care (01) ==
LOC: HO.CHCLDS 10:07
PROVIDERS: Visit Provider Registered Nurse
DX: Z00.00 Encounter for general adult medical examination without abnormal findings (principal); Z11.4 Encounter for screening for human immunodeficiency virus [HIV]; Z13.1 Encounter for screening for diabetes mellitus; Z13.6 Encounter for screening for cardiovascular disorders
CPT/HCPCS: 80053; 80061; 83036; 84443; 84702; 85025; 86592; 86704; 86706; 87340; 87389; 87522

== ENCOUNTER 2025-03-19 09:30 | Outpatient (REF) | payer OTHER, SELFPAY ==
--- OUTSIDE RECORDS SUMMARY | 2025-03-14 14:00 | XMS_ITS | Encounter Summary ---
Author Organization [employer] Address [address] [place] [address] Care Team Providers Care Pharmacovigilance Specialist Name Role Phone Lashay Farooq Primary Care Provider [phone] Encounter Details Date Type Department Care Team (Late st Contact Info) Description 03/14/2025 2:00 PM EDT Telemedicine [facility] [address] [place] [address] Lashay Farooq FNP [address] [place], [place] [id number] Right upper quadrant abdominal pain (Primary Dx); BMI 40.0-44.9, adult (CMS/HCC) (HCC) Social History Tobacco Use Types Packs/Day Years [...] AM EDT documented as of this encounter Progress Notes * Lashay Farooq, LABOR CONTRACTOR - 03/14/2025 2:00 PM EDT Subjective: Cindy Medel is a 35 y.o. female who presents via telehealth for a follow up appointment. HPI Seen for a new patient visit on 03/02/25 Gallstones: abdominal US from 06/16/24 at [facility] demonstrated gallbladder is filled with gallstones yielding a [id number] complex. Normal wall thickness. No pericholecystic fluid. Negative Centeno's sign. She was subsequently referred for surgical consult, but appears lost to follow up. She r eports pain did improve after taking course of cipro, but continues with limited appetite and intermittent abdominal pain. Has upcoming repeat abdominal us scheduled next Wednesday. ED precautions sooner PRN. Will plan to refer to surgery team if gall stones persist. Weight management: reports she has tried a wide variety of dieting/weight management strategies in the past w/o success. She is interested in consideration of pharmacotherapy. Telehealth: Patient gave verbal consent to be seen in this manner. A complete assessment and plan is detailed in the note, all of which were conducted remotely using virtual technology. Patient identity was verbally confirmed with 2 identifiers at the start of the visit. Patient verbalized being located in the [facility] during the televisit. Provider was located in an Ambulatory examroom/outside the office at a secure location during the visits. Problem List[1] Review of Systems Constitutional: Negative for chills and fever. Respiratory: Negative for cough and wheezing. Gastrointestinal: Positive for abdominal pain (intermittent). Allergies[2] Objective: Telehealth - No Physical Exam Psych: Alert & oriented x 3. Normal mood and affect. Assessment/Plan: Problem List Items Addressed This Visit Endocrine and Metabolic BMI 40.0-44.9, adult ([facility]) ([facility]) Current Assessment & Plan Wt Readings from Last 10 Encounters: 03/02/25 246 lb (112 kg) - Continue with nutrition and exercise interventions - Plan: start phentermine 15mg in the AM and topiramate 25mg nightly. Reviewed med safety and SE. - Follow up in 6-8 weeks, sooner as needed Relevant Medications phentermine 15 MG capsule topiramate (Topamax) 25 MG tablet Other Visit Diagnoses Right upper quadrant abdominal pain - Primary - RUQ abd us scheduled for next week. Reviewed ED precautions sooner as needed Follow up: 6-8 weeks for weight management, sooner as needed. [1] Patient Active Problem List Diagnosis Anemia Asthma Mood disorder ([facility]) Lumbar radiculopathy BMI 40.0-44.9, adult ([facility]) ([facility]) [2] No Known Allergies documented in this encounter Miscellaneous Notes * Assessment & Plan Note - OKSANA Cadena - 03/14/2025 2:45 PM EDTAssociated Problem(s): BMI 40.0-44.9, adult ([facility]) ([facility]) Wt Readings from Last 10 Encounters: 03/02/25 246 lb (112 kg) - Continue with nutrition and exercise interventions - Plan: start phentermine 15mg in the AM and topiramate 25mg nightly. Reviewed med safety and SE. - Follow up in 6-8 weeks, sooner as needed documented in this encounter Plan of Treatment Upcoming Encounters Date Type Department Care Team (Late st Contact Info) Description 04/27/2025 10:00 AM EST Office Visit [facility] [address] [facility] [place] [address] Lashay Farooq FNP [address] [place] [address] documented as of this encounter Visit Diagnoses Diagnosis Right upper quadrant abdominal pain- Primary BMI 40.0-44.9, adult (CMS/HCC) (HCC) documented in this encounter Additional Health Concerns Assessment Noted Time PHQ-9 Depression Total Score: 5 03/02/20 25 10:04 AM EDT documented as of this encounter Care Teams Pharmacovigilance Specialist Relationship Specialty Start Date End Date Lashay Farooq FNP [address] [place] [address] PCP - General Family Medicine 03/02/25 documented as of this encounter
--- NOTE | ~2025-03-19 | US_ITS ---
CLINICAL HISTORY: RUQ abd pain, r o cholecystitis US abdomen limited Comparison: US/SR - US ABDOMEN LIMITED - 06/30/22 10:[address] - CT ABDOMEN PELVIS WITH IV CONTRAST - 06/30/22 09:25 EST Findings: The visualized pancreas is normal. The liver is normal in size with increase of echogenicity. There is no intrahepatic bile duct dilatation. The common duct is 3.0 mm in diameter. There are gallstones in the gallbladder. There is no sonographic Centeno sign. The main portal vein is antegrade. The right kidney is 11 cm in length. No ascites. IMPRESSION: Cholelithiasis. Hepatic steatosis. This document has been electronically signed by: Nicki Cordova MD on 03/19/2025 17:20:19
--- OUTSIDE RECORDS SUMMARY | 2025-03-19 10:49 | XMS_ITS | Encounter Summary ---
Author Organization [employer] Address [address] [place] [address] Care Team Providers Care Sales Operations Name Role Phone Lashay Farooq OKSANA Primary Care Provider Encounter Details Date Type Department Care Team (Latest Contact Info) Description 03/14/2025 Travel Social History Tobacco Use Types Packs/Day [...] Upcoming Encounters Date Type Department Care Team ([facility] st Contact Info) Description 04/27/2025 10:00 AM EST Office Visit [facility] [address] [place] [address] Lashay Farooq FNP [address] [place] [address] documented as of this encounter Visit Diagnoses Not on filedocumented in this encounter Additional Health Concerns Assessment Noted Time PHQ-9 Depression Total Score: 5 03/02/20 25 10:04 AM EDT documented as of this encounter Care Teams Sales Operations Relationship Specialty Start Date End Date Lashay Farooq FNP [address] [place] [address] PCP - General Family Medicine 03/02/25 documented as of this encounter
--- OUTSIDE RECORDS SUMMARY | 2025-03-19 10:49 | XMS_ITS | Clinical Summary ---
Author Organization [facility] Address [address] [place] [address] Care Team Providers Care Normalizer Name Role Phone Regina Murrieta MD Primary Care Provider Surgical History Surgery Date Site/Laterality Comments APPENDECTOMY 2002 PROCEDURE: CO APPENDECTOMY TONSILLECTOMY ADENOIDECTOMY, BILATERAL MYRINGOTOMY AND TUBES PROCEDURE: CO TONSILLECTOMY & ADENOIDECTOMY <AGE 12 Medical History [...] Cervical Cancer Screening: P ap Smear 2011 HPV Vaccines (1 - 3-dose SCD M series) 2017 Depression Screening 06/14/2024 COVID-19 Vaccine (2023-2 5 [...] age to complete this topic Care Teams Normalizer Relationship Specialty Start Date End Date Regina Murrieta MD [address] [place] [phone] PCP - General 04/03/14
--- OUTSIDE RECORDS SUMMARY | 2025-03-19 10:49 | XMS_ITS | Clinical Summary ---
Author Organization [employer] Address [address] [facility] [address] [place] [address] Care Team Providers Care Steam Shovel Engineer Name Role Phone Lashay Farooq OKSANA Primary Care Provider [phone] Allergies No known active allergies Medications fluticasone [...] 18 g 1 5 03/02/20 26 Active phentermine 15 MG capsule Take 1 capsule (15 mg) by mouth before breakfast. (Not safe in ) 30 capsule 1 5 04/13/20 25 Active topiramate (Topamax) 25 MG tablet Take 1 tablet (25 mg) by mouth at bedtime. 30 tablet 11 5 03/14/20 26 Active ciprofloxacin (Cipro) 500 MG tablet Take 1 tablet (500 mg) by mouth 2 times daily for 5 days. 10 tablet 5 03/14/20 25 Discontinu ed(Therapy completed) Active Problems Problem Noted Date Diagnosed Date BMI 40.0-44.9, adult ([facility]) 03/14/2025 Assessment & Plan (03/14/2025 2:45 PM EDT): Wt Readings from Last 10 Encounters: 03/02/25 246 lb (112 kg) - Continue with nutrition and exercise interventions - Plan: start phentermine 15mg in the AM and topiramate 25mg nightly. Reviewed med safety and SE. - Follow up in 6-8 weeks, sooner as needed Anemia 03/02/2025 Assessment & Plan (03/04/2025 8:00 PM EDT): - Plan: check CBC Asthma 03/02/2025 Mood disorder 03/02/2025 Assessment & Plan (03/04/2025 8:00 PM EDT): - Previous diagnoses include: anxiety, depression, and bipolar disorder - Psych med prescriber: Nakia Paul APRN, through [facility] - Therapist: pending, intake completed - Cont with hydroxyzine 25mg nightly and gabapentin 600mg TID through psych - Well controlled with current regimen Lumbar radiculopathy 03/02/2025 Resolved Problems Problem Noted Date Diagnosed Date Resolved Date Depression 03/02/2025 03/04/2025 Bipolar affective disorder in remission 03/02/2025 03/04/2025 Encounters Date Type Department Care Team Description 03/14/2025 2:00 PM EDT Telemedicine [facility] MEDICINE [address] [place], [place] [phone] Lashay Farooq, [employer] Right upper quadrant abdominal pain (Primary Dx); BMI 40.0-44.9, adult ([facility]) ([facility]) 03/14/2025 Travel 03/07/2025 Travel 03/05/2025 Orders Only [facility] MED & PEDS [address] [place], [place] [phone] Lashay Farooq, MA[employer]GER [employer] 03/05/2025 Telephone [facility] MEDICINE [address] [place], [place] [phone] Lashay Farooq FNP Results 03/02/2025 9:00 AM EDT Office Visit [facility]EDS [address] [place] [address] Lashay Farooq FNP Gallstones (Primary Dx); Mood disorder (CMS/HCC); Lumbar radiculopathy; Right upper quadrant abdominal pain; Healthcare maintenance; Infertility counseling; Anemia, unspecified type 03/02/2025 Travel 03/01/2025 Travel 02/23/2025 Patient Outreach [facility] MEDICINE [address] [place] [address] Tal Wagner MD Pre-visit Planning (SDOH screening negative and Tobacco screening negative) from Last 3 Months Immunizations Immunization Administration [...] Description 04/27/2025 10:00 AM EST Office Visit [facility] MED [facility] PEDS [address] [place] [address] Lashay Farooq FNP [address] [place] [address] Health Maintenance Due Date Last Done Comments Tobacco Screening 2002 Family Planning (PISQ) 2005 HPV Vaccines (1 - 3-dose series) 2005 Pneumococcal Vaccine: Pediatrics (0 to 5 Years) [...] Td or Tdap) 08/15/2028 08/15/2018, 02/27/2013, 03/03/2002 Lipid Panel 03/02/2030 03/02/2025 Zoster Vaccines (1 of 2) 02/08/2040 RSV Patients and Patients Aged 60 years or older (1 - 1-dose 75+ series) 2065 IPV Vaccines Completed 09/26/1994, 06/1991, 1990, Additional history exists Hepatitis B Vaccines Completed 06/26/2002, 01/31/2002, 10/13/2000 HIV Screening Completed 03/02/2025 Hepatitis C Screening Completed 03/02/2025 HIB Vaccines Aged Out No longer eligi [...] Procedure Name Priority Date/Time Associated Diagnosis Comments HEPATITIS B SURFACE ANTIGEN, EIA Routine 03/02/2025 10:10 AM EDT Healthcare maintenance HEPATITIS B SURFACE ANTIBODY, QUALITATIVE Routine 03/02/2025 10:10 AM EDT Healthcare maintenance HEPATITIS B CORE AB TOTAL Routine 03/02/2025 10:10 AM EDT Healthcare maintenance HCG, TOTAL, QN Routine 03/02/2025 10:10 AM EDT Healthcare maintenance CBC WITH AUTO DIFFERENTIAL Routine 03/02/2025 10:10 AM EDT Healthcare maintenance COMPREHENSIVE METABOLIC PANEL Routine 03/02/2025 10:10 AM EDT Healthcare maintenance TSH W/REFLEX TO FT4 Routine 03/02/2025 1 0:10 AM EDT Healthcare maintenance HEMOGLOBIN A1C Routine 03/02/2025 10:10 AM EDT Healthcare maintenance LIPID PANEL, STANDARD Routine 03/02/2025 10:10 AM EDT Healthcare maintenance HIV 1/2 ANTIGEN/ANTIBODY, FOURTH GENERATION W/RFL Routine 03/02/2025 10:10 AM EDT Healthcare maintenance RPR (MONITOR) W/REFL TITER Routine 03/02/2025 10:10 AM EDT Healthcare maintenance HEPATITIS C VIRAL RNA, QUANTITATIVE, REAL-TIME PCR Routine 03/02/2025 10:10 AM EDT Healthcare maintenance ZZZ HISTORICAL HPV MRNA E6/E7 Routine 03/09/2018 10:50 AM EDT from Last 3 Months or Most Recently Relevant to Health Maintenance Results * TSH with Reflex to Free T4 (03/02/2025 10:10 AM EDT) TSH reflex Free T4 0.77 0.32 - 4.0 uIU/mL [facility] Blood 03/02/2025 10:1 0 AM EDT 03/02/2025 2:25 PM EDT Lashay Farooq [facility] BLOOD ORDERABLES Final Res ult Performing Organization Address [facility] de Phone Number [facility] [address] [place] [phone] * Hepatitis C Viral RNA, Quantitative, Real-Time PCR (03/02/2025 10:10 AM EDT) [facility] Hepatitis C Viral Load <15 NOT DETECTED NOT DETECTED IU/mL [facility] HCV Log PCR <1.18 NOT DETECTED NOT DETECTED Log IU/mL [facility] Comment:For additional infor mation, please refer tohttp://education.LendFriend/faq/EUP06s8(This link is being provided for informational/educational purposes only.)THIS TEST WAS PERFORMED AT:[employer] [place] [phone] JIMENEZ MD Blood 03/02/2025 10:1 0 AM EDT 03/02/2025 2:25 PM EDT Lashay Farooq [facility] BLOOD ORDERABLES Final Res ult Performing Organization Address [facility] de Phone Number [facility] [address] [place] [phone] * (ABNORMAL) CBC auto differential (03/02/2025 10:10 AM EDT) [facility] White Blood Count 12.4(H) 4.8 - 10.8 X10*3/uL [facility] Red Blood Count 4.39 4.20 - 5.50 X10*6/uL [facility] Hemoglobin 12.1 12.0 - 16.0 g/dl [facility] Hematocrit 38.6 37.0 - 47.0 % [facility] Mean Corpuscular Volume 87.9 80.0 - 98.0 fL [facility] Mean Corpuscular Hemoglobin 27.6 27.0 - 33.0 pg [facility] Mean Corpuscular HGB Conc 31.3 31.0 - 35.0 g/dl [facility] Red Cell Distribution Width 13.7 11.0 - 16.0 % [facility] Platelet Count 334 160 - 400 X10*3/uL [facility] Mean Platelet Volume 11.2 9.4 - 12.3 fL [facility] Neutrophils Percent Auto 69.0 45 - 73 % [facility] Imm Gran Pct Auto 0.3 0.0 - 0.4 % [facility] Lymphocytes Percent Auto 23.7 20 - 40 % [facility] Monocytes Percent Auto 5.6 2 - 11 % [facility] Eosinophils Percent Auto 1.0 0 - 4 % [facility] Basophils Percent Auto 0.4 0 - 2 % [facility] NRBC Pct Auto 0.0 0.0 - 0.2 /100WBC [facility] Neutrophils Absolute Auto 8.6(H) 2.0 - 8.3 x10*3/uL [facility] Imm Gran Abs Auto 0.04(H) 0.00 - 0.03 X10*3/uL [facility] Lymphocytes Absolute Auto 2.9 1.2 - 4.9 X10*3/uL [facility] Monocytes Absolute Auto 0.7 0.1 - 1.2 X10*3/uL [facility] Eosinophils Absolute Auto 0.1 0.0 - 0.4 X10*3/uL [facility] Basophils Absolute Auto 0.1 0.0 - 0.2 X10*3/uL [facility] NRBC Abs Auto 0.000 0.0 - 0.012 X10*3/uL [facility] Blood Venous blood specimen / Unknown 03/02/2025 10:10 AM EDT 03/02/2025 2:25 PM EDT us Lashay Farooq [employer] LAB BLOOD ORDERABLES Final Res ult [facility] [address] [place] [phone] * Hepatitis B surface antigen, EIA (03/02/2025 10:10 AM EDT) Hepatitis B Surface Ag Negative Negative [facility] Blood Venous blood specimen / Unknown 03/02/2025 10:10 AM EDT 03/02/2025 2:25 PM EDT Lashay Farooq [employer] LAB BLOOD ORDERABLES Final Res ult Performing Organization Address [facility] Co de Phone Number [facility] [address] [place] [phone] * Hepatitis B Core Antibody, Total (03/02/2025 10:10 AM EDT) Hepatitis B Core Antibody Nonreactive Nonreactive [facility] Blood Venous blood specimen / Unknown 03/02/2025 10:10 AM EDT 03/02/2025 2:25 PM EDT Lashay Farooq [employer] LAB BLOOD ORDERABLES Final Res ult Performing Organization Address [facility] Co de Phone Number [facility] [address] [place] [phone] * RPR (Monitor) with Reflex to??Titer (03/02/2025 10:10 AM EDT) RPR (Monitor) w/Refl Titer NON-REACTI VE NON-REACT NAHEED [facility] Comment:THIS TEST WAS PERFOR MED AT:[employer] [place] [phone] JIMENEZ MD Rapid Plasma Reagin Ab Titer TNP [facility] Blood Venous blood specimen / Unknown 03/02/2025 10:10 AM EDT 03/02/2025 2:25 PM EDT Lashay Farooq [employer] LAB BLOOD ORDERABLES Final Res ult Performing Organization Address [facility]/ZIP Co de Phone Number [facility] [address] [place] [phone] * HIV-1/2 Antigen and Antibodies, Fourth Generation, with Reflexes (03/02/2025 10:10 AM EDT) Pathologist [facility] HIV AB/AG Nonreactive Nonreactive [facility] Comment:HIV-1 p24 Ag and/or HIV-1/HIV-2 Ab not detected.A test result that is nonreactive does not exclude thepossibility of exposure to or infection with HIV-1 and/orHIV-2. Nonreactive results in this assay for individualswith prior exposure to HIV-1 and/or HIV-2 may be due toantigen and antibody levels that are below the limit ofdetection of this assay.The [employer] HIV Ag/Ab Combo assay result andsupplemental assay results should be interpreted inconjunction with the patient's clinical presentation,history and other laboratory results. If the results areinconsistent with clinical evidence, additional testing issuggested to confirm the result. Blood Venous blood specimen / Unknown 03/02/2025 10:10 AM EDT 03/02/2025 2:25 PM EDT Lashay Farooq [facility] BLOOD ORDERABLES Final Res ult Performing Organization Address [facility]/ZIP Co de Phone Number [facility] [address] [place] [phone] * Hepatitis B Surface Antibody, Qualitative (03/02/2025 10:10 AM EDT) Pathologist [facility] ~Hepatitis B Surface Antibody NONREACTIVE Nonreactive [facility] Comment:Nonreactive: < 8.00 mIU/mL Blood Venous blood specimen / Unknown 03/02/2025 10:10 AM EDT 03/02/2025 2:25 PM EDT Lashay Farooq [facility] BLOOD ORDERABLES Final Res ult Performing Organization Address [facility] Co de Phone Number [facility] [address] [place] [phone] * hCG, Total, Quantitative (03/02/2025 10:10 AM EDT) HCG Quantitative <2 mIU/mL [facility] Comment:Weeks post LMP Appro ximate hCG(Last Menstrual Period) Range (mIU/ml)3 - 4 weeks 9 - 1304 - 5 weeks 75 - 2,6005 - 6 weeks 850 - 20,8006 - 7 weeks 4000 - 100,2007 - 12 weeks 11,500 - 289,05833 - 16 weeks 18,300 - 137,44012 - 29 weeks (2nd trimester) 1,400 - 53,19600 - 41 weeks (3rd trimester) 940 - 60,000The Simpson B- hCG assay is used for the early detection ofpregnancy; it cannot be used to diagnose any conditionunrelated to . If a B-hCG level is not supportedby the clinical evidence, results should be confirmed by analternative method (qualitative urine hCG, for example). Blood Venous blood specimen / Unknown 03/02/2025 10:10 AM EDT 03/02/2025 2:25 PM EDT Lashay Farooq [employer] LAB BLOOD ORDERABLES Final Res ult Performing Organization Address [facility] Co de Phone Number [facility] [address] [place] [phone] * Hemoglobin A1c (03/02/2025 10:10 AM EDT) Hemoglobin A1c 5.2 <6.0 % [facility] Comment:Hemoglobin A1C Refer ence Range Adults: 4.8 - 6.0 % Non diabetic: < 6.0 % Goal: < 7.0 %Additional Action Suggested: > 8.0 %Note: Hemoglobin A1c results are invalid for patients with abnormal amounts of HbF. Blood transfusions may impact the HbA1c concentration in the patient sample. Estimated Average Glucose 103 mg/dL [facility] Comment:eAG = Estimated ave rage glucose which is %A1C expressed asaverage glucose, using the formula of the L8G-CvjpywvJgqvelp Glucose study (ADAG), Diabetes Care, Vol.31,#8,Jan. 2007 Blood Venous blood specimen / Unknown 03/02/2025 10:10 AM EDT 03/02/2025 2:25 PM EDT Lashay Farooq [facility] BLOOD ORDERABLES Final Res ult Performing Organization Address City/[facility]/ZIP Co de Phone Number [facility] [address] [place] [address] [phone] * (ABNORMAL) Lipid Panel, Standard (03/02/2025 10:10 AM EDT) Triglycerides 118 <150 mg/dL [facility] Comment:Desirable Triglyceri de: less than 150 mg/dLBorderline High Triglyceride 150-199 mg/dLHigh Triglyceride: 200-499 mg/dLVery High Triglyceride: greater than or equal to 5OO mg/dL Cholesterol 183 <200 mg/dL [facility] Comment:Desirable Cholestero l: less than 200 mg/dLBorderline High Cholesterol: 200-239 mg/dLHigh Cholesterol: greater than 239 mg/dL LDL Cholesterol Calculated 114(H) <100 mg/dL [facility] Comment:Desirable LDL: less than 100 mg/dLNear Optimal/Above Optimal LDL: 110- 129 mg/dLBorderline High LDL: 130-159 mg/dLHigh LDL: 160-189 mg/dLVery High LDL: greater than or equal to 190 mg/dL HDL Cholesterol 46 >40 mg/dL [facility] Comment:Desirable HDL: great er than 40 mg/dL Note: This HDL assay may give artificially low results in patients with liver disease. Blood Venous blood specimen / Unknown 03/02/2025 10:10 AM EDT 03/02/2025 2:25 PM EDT Lashay Farooq [facility] BLOOD ORDERABLES Final Res ult [facility] [address] [place] [phone] * (ABNORMAL) Comprehensive Metabolic Panel (03/02/2025 10:10 AM EDT) Sodium 140 135 - 145 mmol/L [facility] Potassium 3.9 3.3 - 5.1 mmol/L [facility] Chloride 108 96 - 108 mmol/L [facility] Carbon Dioxide 25 22 - 29 mmol/L [facility] Anion Gap 11(L) 12 - 20 [facility] Urea Nitrogen (BUN) 10 9 - 16 mg/dL [facility] Creatinine, Serum 0.59 0.5 - 1.4 mg/dL [facility] Estimated Glomerular Filt Rate >60 [facility] Comment:Chronic Kidney Disea se: Estimated GFR < 60 mL/min/1.73s8Wdnhta Kidney Disease: Estimated GFR < 15 mL/min/1.73m2 Glucose 84 60 - 115 mg/dL [facility] Calcium 9.1 8.4 - 10.2 mg/dL [facility] Bilirubin, Total 0.3 0.0 - 1.0 mg/dL [facility] Aspartate Amino Transferase 32(H) 5 - 31 U/L [facility] Alanine Aminotransferase 31 0 - 31 U/L [facility] Total Protein 7.8 6.5 - 8.0 g/dL [facility] Albumin Level 4.4 3.5 - 5.0 g/dL [facility] Alkaline Phosphatase 73 39 - 117 U/L [facility] Blood Venous blood specimen / Unknown 03/02/2025 10:10 AM EDT 03/02/2025 2:25 PM EDT Lashay Farooq [employer] LAB BLOOD ORDERABLES Final Res ult Performing Organization Address [facility]/ZIP Co de Phone Number [facility] [address] [place] [phone] * (ABNORMAL) HPV mRNA E6/E7 (03/09/2018 10:50 AM EDT) HPV mRNA E6/E7 DETECTED (AA) NOT DETECTED [facility] Comment: This test was performed using the APTIMA(R) HPV Assay ([employer] This assay detects E6/E7 viral messenger RNA (mRNA) from 14 high-risk HPV types (16,18,31,33,35,39,45,51, 52,56,58,59,66,68). For additional information please refer to: http://education.LendFriend/faq/VCT597b7 (This link is being provided for informational/ educational purposes only.) The analytical performance characteristics of this assay have been determined by [employer] [place], [place]. The modifications have not been cleared or approved by the FDA. This assay has been validated pursuant to the CLIA regulations and is used for clinical purposes. Test Performed by [facility], [facility], [address] [place] [address] Jaswinder Leary M.D., Ph.D., Director of Laboratories , CLIA [id number] Please note: Effective 02/24/2016, HPV testing will be performed using [employer]'s APTIMA test which targets mRNA. Detecting mRNA instead of DNA, as in older methods, offers significant improvements in specificity. 03/09/2018 10:5 0 AM EDT us Karina Martins CNM HISTORICAL/NON ORDERABLE LABS Final Result [facility] [address] from Last 3 Months or Most Recently Relevant to Health Maintenance Insurance [facility] < [address] [id number] Care Teams Steam Shovel Engineer Relationship Specialty Start Date End Date Lashay Farooq FNP [address] [place] [address] SHANDA RODRIGUEZ [phone] PCP - General Family Medicine 03/02/25
--- OUTSIDE RECORDS SUMMARY | 2025-03-19 10:49 | XMS_ITS | Encounter Summary ---
Author Organization [employer] Address [address] [facility] [address] [place] [address] Care Team Providers Care Wash Helper Name Role Phone Lashay Farooq Primary Care Provider [phone] Encounter Details Date Type Department Care Team (Late st Contact Info) Description 03/05/2025 Orders Only [facility]S [address] [place], [place] [phone] Lashay Farooq FNP [address] [place], [place] [phone] Social History Tobacco Use Types Packs/Day Years Used Date Smoking Tobacco: Never Assessed Depression Answer Date Recorded Patient Health Questionnaire-9 Score 5 03/02/2025 Patient Health Questionnaire-9 Score 5 03/02/2025 Last PHQ-9: Questionnaire Data Not on file 0 03/02/2025 Housing Stability Answer Date Recorded What is your housing situation today? I have [employer] 02/23/[address] you [...] Description 04/27/2025 10:00 AM EST Office Visit [facility] [address] [place] [address] Lashay Farooq FNP [address] [place] [address] documented as of this encounter Visit Diagnoses Not on filedocumented in this encounter Additional Health Concerns Assessment Noted Time PHQ-9 Depression Total Score: 5 03/02/20 25 10:04 AM EDT documented as of this encounter Care Teams Wash Helper Relationship Specialty Start Date End Date Lashay Farooq FNP [address] [place] [address] PCP - General Family Medicine 03/02/25 documented as of this encounter
== END 2025-03-19 09:31 | disposition home or self-care (01) ==
LOC: HO.US 09:30
PROVIDERS: PCP Registered Nurse; Visit Provider Registered Nurse
DX: R10.11 Right upper quadrant pain (principal)
CPT/HCPCS: 76705

== ENCOUNTER → 2025-03-19 09:34 | Outpatient (BNV) | payer OTHER, SELFPAY | PROVIDERS: PCP Registered Nurse; Visit Provider Nuclear Medicine | DX: K80.20 Calculus of gallbladder without cholecystitis without obstruction (principal); K76.0 Fatty (change of) liver, not elsewhere classified | CPT/HCPCS: 76705 ==

== ENCOUNTER 2025-04-23 15:59 | Emergency (ER) | payer OTHER, SELFPAY ==
[2025-04-23 16:13] VITALS: BP 125/73; PULSE 93; RESP 16; TEMP 36.6; O2SAT 98; BMI 40.2
--- NOTE | 2025-04-23 16:15 | ED_ITS ---
HPI - General Adult General Chief complaint: Urogenital-Female Stated complaint: Vaginal Issues Time Seen by Provider: 04/23/25 19:35 History of Present Illness ED Provider: Dr. Hurley HPI narrative: 35 y/o F patient; PMH hx UTI; presents from home reporting blood in her urine, NBNB nausea/vomiting, and lower abdominal cramping. She otherwise denies: fever or chills, SOB, cough/congestion, chest pain. She is currently sexually active. She denies any concern for STDs. Related Data Previous Rx's ?Medication ?Instructions ?Recorded nitrofurantoin 100 mg PO BID 5 days #10 cap s 07/14/22 monohydrate/macrocrystals 100 mg capsule (Macrobid) nitrofurantoin 100 mg PO Q12H 7 days #14 ca ps 04/23/25 monohydrate/macrocrystals 100 mg capsule (Macrobid) phenazopyridine 100 mg tablet 100 mg PO TID PRN pain 6 doses #6 04/23/25 (Pyridium) tabs Allergies Allergy/AdvReac Type Severity Reaction Status Date / Time No Known Allergies Allergy Verified 04/23/25 16:19 Review of Systems 2 Review of Systems: Yes all other systems are reviewed and are negative PMFSH Past Medical History Attestation statement: The following information was validated with the patient. Source: old records reviewed Surgical History Hx of tonsillectomy Hx of appendectomy Social History Social History Alcohol intake: never Patient Tobacco Use Status: Never used Tobacco Smoked in Last 30 Days: No Use of substances other than those prescribed or required for medical reasons: No Substance Use Type: Marijuana Advance Directives: No Advance Directives Information Provided: No Do you have a plan to hurt others: No Plan Physical Exam ED Vital Signs: Vital Signs - 24 hr 04/23/25 16:13 Temperature 97.8 F Pulse Rate 93 Respiratory Rate 16 Blood Pressure 125/73 Pulse Oximetry 98 Oxygen Delivery Method Room Air BMI result Body Mass Index 40.2 Patient is afebrile and hemodynamically stable. Const General: cooperative and no acute distress Orientation/consciousness: patient oriented x3 HENMT Head: Yes normal to inspection and Yes atraumatic Eyes General: appearance normal, both eyes and all related structures Pupils: Equal, round and reactive pupils present EOM: EOMs intact bilaterally Neck Neck: Yes normal visual inspection, Yes full ROM, Yes supple and No tender Chest Chest palpation & inspection: normal inspection of the chest and normal palpation of entire chest wall Resp Effort & Inspection: normal respiratory effort, able to speak in complete sentences and no cough Auscultation: clear to auscultation bilaterally Cardio Rate: regular rate Rhythm: regular rhythm Peripheral pulses: Peripheral pulses 2+ throughout GI Inspection: Yes normal to inspection, No Abdominal wall edema and No distended Palpation (GI): Soft to palpation, not firm, nontender, no guarding and not rigid Auscultation: normal bowel sounds Back/Spine/Pelvis Back: No back tenderness Neuro General: patient oriented x3 Cranial nerves: Yes Equal, round and reactive pupils present Course Course Course Narrative: Rapid medical examination performed in triage by Shiloh Brunson PA-C: Patient is a 35 year old assigned female at presenting to the emergency department with blood in her urine and pain with urination. Detailed physical exam and review of systems are deferred to the day treatment clinician/art therapist. Labs ordered. Patient placed back in the waiting room pending room availability and results. Reevaluation(s) Reevaluation #1: Patient is afebrile and hemodynamically stable. Reviewed triage work up. Mild leukocytosis 14.3. Mild anemia Hgb 12 (consistent with prior Hgb 12.1). HCG negative. Patient having difficulty providing urine sample as she states it [place] when she pees. Encouraged to keep trying, she declined catheterization which I do think is reasonable considering her age. Providing pain control with tylenol and toradol, antiemetic with zofran. Although patient has a history of cholelithiasis she does not have any focal RUQ abdominal tenderness or transaminitis to make me concerned for exacerbation and she is currently tolerating PO without difficulty. Pending urine at the end of my shift 2099. Condition: Stable Reevaluation #2: 10:27 PM 04/23/2025 (Dr. Diana Burgos, D.O.) patient improved with treatment. Urine is grossly infected. Medicated with Macrobid, discharged home with a prescription for same as well as Pyridium. Discharged in stable condition. Medications Administered Discontinued Medications Generic Name Dose Route Start Last Admin Trade Name Freq PRN Reason Stop Dose Admin Acetaminophen 975 mg 04/23/25 20:39 04/23/25 20:48 Acetaminophen 325 Mg Tablet PO 04/23/25 20:40 975 mg ONCE ONE Administration Ketorolac Tromethamine 30 mg 04/23/25 20:39 04/23/25 20:50 Ketorolac Tromethamine 30 Mg/Ml Vial IM 04/23/25 20:40 30 mg ONCE ONE Administration Ondansetron HCl 4 mg 04/23/25 20:39 04/23/25 20:50 Ondansetron Odt 4 Mg Tab.Rapdis TRANSLINGU 04/23/25 20:40 4 mg ONCE ONE Administration Medical Decision Making Lab Data 04/23/25 16:22 04/23/25 16:22 Labs: Lab Results 04/23/25 04/23/25 Range/Units 16:22 21:18 WBC 14.3 H (4.8-10.8) X10*3/uL RBC 4.43 (4.20-5.50) X10*6/uL Hgb 12.0 (12.0-16.0) g/dl Hct 38.6 (37.0-47.0) % MCV 87.1 (80.0-98.0) fL MCH 27.1 (27.0-33.0) pg MCHC 31.1 (31.0-35.0) g/dl RDW 13.8 (11.0-16.0) % Plt Count 386 (160-400) X10*3/uL MPV 9.6 (9.4-12.3) fL Immature Gran % (Auto) 0.3 (0.0-0.4) % Neut % (Auto) 68.4 (45-73) % Lymph % (Auto) 23.8 (20-40) % [place] % (Auto) 5.9 (2-11) % Eos % (Auto) 1.2 (0-4) % Baso % (Auto) 0.4 (0-2) % Lymph # (Auto) 3.4 (1.2-4.9) X10*3/uL [place] # (Auto) 0.8 (0.1-1.2) X10*3/uL Eos # (Auto) 0.2 (0.0-0.4) X10*3/uL Baso # (Auto) 0.1 (0.0-0.2) X10*3/uL Abs Immat Gran (auto) 0.05 H (0.00-0.03) X10*3/uL Absolute Neuts (auto) 9.8 H (2.0-8.3) x10*3/uL Absolute Nucleated RBC 0.000 (0.0-0.012) X10*3/uL Nucleated RBC % (auto) 0.0 (0.0-0.2) /100WBC Sodium 141 (135-145) mmol/L Potassium 3.9 (3.3-5.1) mmol/L Chloride 109 H (96-108) mmol/L Carbon Dioxide 25 (22-29) mmol/L Anion Gap 11 L (12-20) BUN 12 (9-16) mg/dL Creatinine 0.65 (0.5-1.4) mg/dL Estim Creat Clear Calc 148.8 Estimated GFR > 60 Random Glucose 93 (60-115) mg/dL Calcium 9.4 (8.4-10.2) mg/dL Magnesium 2.1 (1.6-2.6) mg/dL Total Bilirubin 0.3 (0.0-1.0) mg/dL AST 21 (5-31) U/L ALT 22 (0-31) U/L Alkaline Phosphatase 70 (39-117) U/L Total Protein 7.3 (6.5-8.0) g/dL Albumin 4.2 (3.5-5.0) g/dL Beta HCG, Quant < 2 mIU/mL Urine Color Yellow Urine Appearance Cloudy Urine pH 5.5 (5.0-9.0) Ur Specific [place] 1.015 (1.005-1.025) Urine Protein 30 (1+) H (Neg-Trace) mg/dL Urine Glucose (UA) Negative (Negative) mg/dL Urine Ketones Negative (Negative) mg/dL Urine Blood Large (3+) H (Negative) Urine Nitrite Positive H (Negative) Ur Leukocyte Esterase Moderate (2+) H (Negative) Urine RBC 6-10 H (0-2) /HPF Urine WBC 11-20 (0-5) /HPF Ur Squamous Epith Cells 6-10 (0-2) /HPF Urine Bacteria 4+ (None Seen) Hyaline Casts 3-5 (0-2) /LPF Discharge Plan Discharge Clinical Impression: Abdominal pain, Dysuria, UTI (urinary tract infection) Patient Disposition: Home, Self-Care Instructions: Urinary Tract Infection in Women (DC) Additional Instructions: You were seen today for nausea/vomiting, abdominal pain, and painful urination. Your labs were reassuring with normal liver tests and a negative . Take your antibiotic as prescribed until the course is completed. Do not stop this medication early if you start to feel better. Return to the emergency department with any new or worsening symptoms including: Worsening pain, fevers greater than 100? despite antibiotic treatment, vomiting, or any new symptom that concerns you. Call 911 with any medical emergency. Prescriptions: New phenazopyridine [Pyridium] 100 mg tablet 100 mg PO TID PRN (Reason: pain) Qty: 6 0RF nitrofurantoin monohyd/m-cryst [Macrobid] 100 mg capsule 100 mg PO Q12H 7 Days Qty: 14 0RF Rx Instructions: must administer with a meal/food No Action nitrofurantoin monohyd/m-cryst [Macrobid] 100 mg capsule 100 mg PO BID 5 Days Qty: 10 0RF Print Language: [place]
[2025-04-23 16:38] LABS: MANUAL DIFF FLAG NO
[2025-04-23 16:40] LABS: Hematocrit 38.6 % (37.0-47.0); Hemoglobin 12.0 g/dl (12.0-16.0); Imm Gran Abs Auto 0.05 X10*3/uL (0.00-0.03); Imm Gran Pct Auto 0.3 % (0.0-0.4); Lymphocytes Absolute Auto 3.4 X10*3/uL (1.2-4.9); Mean Corpuscular HGB Conc 31.1 g/dl (31.0-35.0); Mean Corpuscular Hemoglobin 27.1 pg (27.0-33.0); Mean Corpuscular Volume 87.1 fL (80.0-98.0); NRBC Abs Auto 0.000 X10*3/uL (0.0-0.012); NRBC Pct Auto 0.0 /100WBC (0.0-0.2); Platelet Count 386 X10*3/uL (160-400); Red Blood Count 4.43 X10*6/uL (4.20-5.50); White Blood Count 14.3 X10*3/uL (4.8-10.8)
[2025-04-23 17:01] LABS: Alanine Aminotransferase 22 U/L (0-31); Albumin Level 4.2 g/dL (3.5-5.0); Alkaline Phosphatase 70 U/L (39-117); Anion Gap 11 (12-20); Aspartate Amino Transferase 21 U/L (5-31); Blood Urea Nitrogen 12 mg/dL (9-16); Calcium 9.4 mg/dL (8.4-10.2); Carbon Dioxide 25 mmol/L (22-29); Chloride 109 mmol/L (96-108); Creatinine Clr Calc Pharmacy 148.8; Estimated Glomerular Filt Rate > 60; Magnesium 2.1 mg/dL (1.6-2.6); Potassium 3.9 mmol/L (3.3-5.1); Sodium 141 mmol/L (135-145); Total Protein 7.3 g/dL (6.5-8.0)
--- OUTSIDE RECORDS SUMMARY | 2025-04-23 20:07 | XMS_ITS | Encounter Summary ---
Author Organization [employer] Address [address] [facility] 7t [place] [address] Care Team Providers Care Kids Club Attendant Name Role Phone Lashay Farooq Primary Care Provider [phone] Reason for Referral * Consultation (Routine) - Authorized Specialty Diagnoses / Procedures Referred By Kyleigh alarcon Referred To Contact General Surgery Diagnoses Calculus of gallbladder without cholecystitis without obstruction Lashay Farooq FNP [address] [facility] [place] [address] Phone: tel: fax: [facility] General Surgeons [address] Floor [place], [place] Phone: tel: fax: Referral ID Status Reason Start Date Expiration Date Visits Requested Visits Authorized [id number] Authorized Specialty Services Required 03/21/2025 03/21/2026 1 1 Encounter Details Date Type Department Care Team ([facility] st Contact Info) Description 03/21/2025 Results Follow-Up [facility] [address] [place] [address] Lashay Farooq FNP [address] [place] [address] US Abdomen Limited Social History Tobacco Use Types Packs/Day Years [...] as of this encounter Plan of Treatment Scheduled Referrals Name Type Priority Associated Diagnoses Orde r Schedule Referral to General Surgery Outpatient Referral Routine Calculus of gallbladder without cholecystitis without obstruction Expected: 03/21/2025 (Approximate), Expires: 03/21/2026 documented as of this encounter Visit Diagnoses Diagnosis Calculus of gallbladder without cholecystitis without obstruction- Primary Hepatic steatosis Other chronic nonalcoholic liver disease documented in this encounter Additional Health Concerns Assessment Noted Time PHQ-9 Depression Total Score: 5 03/02/20 25 10:04 AM EDT documented as of this encounter Care Teams Kids Club Attendant Relationship Specialty Start Date End Date Lashay Farooq FNP [address] [place] [id number] PCP - General Family Medicine 03/02/25 documented as of this encounter
--- OUTSIDE RECORDS SUMMARY | 2025-04-23 20:07 | XMS_ITS | Encounter Summary ---
Author Organization [employer] Address [address] [facility] 7t [place] [address] Care Team Providers Care Supervisor Car And Yard Name Role Phone Lashay Farooq Primary Care Provider [phone] Encounter Details Date Type Department Care Team (Late st Contact Info) Description 03/05/2025 Orders Only [facility]S [address] [place], [place] [phone] Lashay Farooq FNP [address] [place], [place] [phone] Social History Tobacco Use Types Packs/Day Years [...] as of this encounter Plan of Treatment Not on file documented as of this encounter Visit Diagnoses Not on filedocumented in this encounter Additional Health Concerns Assessment Noted Time PHQ-9 Depression Total Score: 5 03/02/20 10:04 AM EDT documented as of this encounter Care Teams Supervisor Car And Yard Relationship Specialty Start Date End Date Lashay Farooq FNP [address] [place] [phone] PCP - General Family Medicine 03/02/25 documented as of this encounter
--- OUTSIDE RECORDS SUMMARY | 2025-04-23 20:07 | XMS_ITS | Clinical Summary ---
Author Organization [facility] ity Address [address] [place] [address] Care Team Providers Care Cottonseed Meat Presser Name Role Phone Regina Murrieta MD Primary Care Provider [phone] Surgical History Surgery Date Site/Laterality Comments APPENDECTOMY 2002 PROCEDURE: [place] APPENDECTOMY TONSILLECTOMY ADENOIDECTOMY, BILATERAL MYRINGOTOMY AND TUBES PROCEDURE: [place] TONSILLECTOMY & ADENOIDECTOMY <AGE 12 Medical History [...] age to complete this topic Care Teams Cottonseed Meat Presser Relationship Specialty Start Date End Date Regina Murrieta MD [address] [place] [phone] PCP - General 04/03/14
--- OUTSIDE RECORDS SUMMARY | 2025-04-23 20:07 | XMS_ITS | Encounter Summary ---
Author Organization [employer] Address [address] [facility] [address] [place] [address] Care Team Providers Care Concert Pianist Name Role Phone Oseas Lashay OKSANA Primary Care Provider [phone] Encounter Details Date Type Department Care Team (Late st Contact Info) Description 03/27/2025 Orders Only [facility] [address] [place], [place] [phone] Provider, MD Jean Carlos Social History Tobacco Use Types Packs/Day Years [...] on file documented as of this encounter Procedures Procedure Name Priority Date/Time Associated Diagnosis Comments US ABDOMEN, RIGHT UPPER QUADRANT Routine 06/16/2024 1:14 PM EST documented in this encounter Results * US ABDOMEN, RIGHT UPPER QUADRANT (06/16/2024 1:14 PM EST) Anatomical Region Laterality Modality Abdomen Ultrasound us Historical Provider MD MCKENNA US PROCEDURES Final R esult documented in this encounter Visit Diagnoses Not on filedocumented in this encounter Additional Health Concerns Assessment Noted Time PHQ-9 Depression Total Score: 5 03/02/20 10:04 AM EDT documented as of this encounter Care Teams Concert Pianist Relationship Specialty Start Date End Date Lashay Farooq FNP [address] [place] [phone] PCP - General Family Medicine 03/02/25 documented as of this encounter
--- OUTSIDE RECORDS SUMMARY | 2025-04-23 20:07 | XMS_ITS | Encounter Summary ---
Author Organization [employer] Address [address] [facility] [address] 7[address] [place] [address] Care Team Providers Care Senior Business Broker Name Role Phone Lashay Farooq OKSANA Primary Care Provider [phone] Encounter Details Date Type Department Care Team (Late st Contact Info) Description 04/23/2025 Orders Only GENERIC EXTERNAL DATA DEPARTMENT Provider, Generic External Data Social History Tobacco Use Types Packs/Day Years [...] Procedure Name Priority Date/Time Associated Diagnosis Comments CBC WITH AUTO DIFFERENTIAL Routine 04/23/2025 4:22 PM EST HCG, TOTAL, QN Routine 04/23/2025 4:22 PM EST MAGNESIUM Routine 04/23/2025 4:22 PM EST COMPREHENSIVE METABOLIC PANEL Routine 04/23/2025 4:22 PM EST documented in this encounter Results * hCG, Total, Quantitative (04/23/2025 4:22 PM EST) HCG Quantitative <2 mIU/mL [facility] Comment:Weeks post LMP Appro ximate hCG(Last Menstrual Period) Range (mIU/ml)3 - 4 weeks 9 - 1304 - 5 weeks 75 - 2,6005 - 6 weeks 850 - 20,8006 - 7 weeks 4000 - 100,2007 - 12 weeks 11,500 - 289,36085 - 16 weeks 18,300 - 137,82701 - 29 weeks (2nd trimester) 1,400 - 53,46708 - 41 weeks (3rd trimester) 940 - 60,000The Simpson B-hCG assay is used for the early detection ofpregnancy; it cannot be used to diagnose any conditionunrelated to . If a B-hCG level is not supportedby the clinical evidence, results should be confirmed by analternative method (qualitative urine hCG, for example). 04/23/2025 4:22 PM EST 04/23/2025 4:36 PM EST us Generic External Data Provider LAB BLOOD ORDERAB LES Final Result Performing Organization Address City/[facility]/ZIP Co de Phone Number [facility] [address] [place] [address] [phone] * Magnesium (04/23/2025 4:22 PM EST) Magnesium 2.1 1.6 - 2.6 mg/dL [facility] 04/23/2025 4:22 PM EST 04/23/2025 4:36 PM EST us Generic External Data Provider LAB BLOOD ORDERAB LES Final Result Performing Organization Address [facility] Co de Phone Number [facility] [address] [place] [address] [phone] * (ABNORMAL) Comprehensive Metabolic Panel (04/23/2025 4:22 PM EST) Sodium 141 135 - 145 mmol/L [facility] Potassium 3.9 3.3 - 5.1 mmol/L [facility] Chloride 109(H) 96 - 108 mmol/L [facility] Carbon Dioxide 25 22 - 29 mmol/L [facility] Anion Gap 11(L) 12 - 20 [facility] Urea Nitrogen (BUN) 12 9 - 16 mg/dL [facility] Creatinine, Serum 0.65 0.5 - 1.4 mg/dL [facility] Creatinine Clr Calc Pharmacy 148.8 [facility] Comment:Provided height and weight: 165.1 cm,109.6 kg.eGFR (calculated from the MDRD study equation) and eCrCl(calculated from the Cockcroft-Gault equation) are based ondifferent parameters and may not yield comparable results.If eCrCl result is absurd, please check patient'sheight/weight. Estimated Glomerular Filt Rate >60 [facility] Comment:Chronic Kidney Disea se: Estimated GFR < 60 mL/min/1.08e5Inoxup Kidney Disease: Estimated GFR < 15 mL/min/1.73m2 Glucose 93 60 - 115 mg/dL [facility] Calcium 9.4 8.4 - 10.2 mg/dL [facility] Bilirubin, Total 0.3 0.0 - 1.0 mg/dL [facility] Aspartate Amino Transferase 21 5 - 31 U/L [facility] Alanine Aminotransferase 22 0 - 31 U/L [facility] Total Protein 7.3 6.5 - 8.0 g/dL [facility] Albumin Level 4.2 3.5 - 5.0 g/dL [facility] Alkaline Phosphatase 70 39 - 117 U/L [facility] 04/23/2025 4:22 PM EST 04/23/2025 4:36 PM EST us Generic External Data Provider LAB BLOOD ORDERAB LES Final Result [facility] [address] [place] [address] [phone] * (ABNORMAL) CBC auto differential (04/23/2025 4:22 PM EST) White Blood Count 14.3(H) 4.8 - 10.8 X10*3/uL [facility] Red Blood Count 4.43 4.20 - 5.50 X10*6/uL [facility] Hemoglobin 12.0 12.0 - 16.0 g/dl [facility] Hematocrit 38.6 37.0 - 47.0 % [facility] Mean Corpuscular Volume 87.1 80.0 - 98.0 fL [facility] Mean Corpuscular Hemoglobin 27.1 27.0 - 33.0 pg [facility] Mean Corpuscular HGB Conc 31.1 31.0 - 35.0 g/dl [facility] Red Cell Distribution Width 13.8 11.0 - 16.0 % [facility] Platelet Count 386 160 - 400 X10*3/uL [facility] Mean Platelet Volume 9.6 9.4 - 12.3 fL [facility] Neutrophils Percent Auto 68.4 45 - 73 % [facility] Imm Gran Pct Auto 0.3 0.0 - 0.4 % [facility] Lymphocytes Percent Auto 23.8 20 - 40 % [facility] Monocytes Percent Auto 5.9 2 - 11 % [facility] Eosinophils Percent Auto 1.2 0 - 4 % [facility] Basophils Percent Auto 0.4 0 - 2 % [facility] NRBC Pct Auto 0.0 0.0 - 0.2 /100WBC [facility] Neutrophils Absolute Auto 9.8(H) 2.0 - 8.3 x10*3/uL [facility] Imm Gran Abs Auto 0.05(H) 0.00 - 0.03 X10*3/uL [facility] Lymphocytes Absolute Auto 3.4 1.2 - 4.9 X10*3/uL [facility] Monocytes Absolute Auto 0.8 0.1 - 1.2 X10*3/uL [facility] Eosinophils Absolute Auto 0.2 0.0 - 0.4 X10*3/uL [facility] Basophils Absolute Auto 0.1 0.0 - 0.2 X10*3/uL [facility] NRBC Abs Auto 0.000 0.0 - 0.012 X10*3/uL [facility] 04/23/2025 4:22 PM EST 04/23/2025 4:36 PM EST us Generic External Data Provider LAB BLOOD ORDERAB LES Final Result Performing Organization Address City/State/[facility] Co de Phone Number [facility] [address] [place] [address] [phone] documented in this encounter Visit Diagnoses Not on filedocumented in this encounter Additional Health Concerns Assessment Noted Time PHQ-9 Depression Total Score: 5 03/02/20 25 10:04 AM EDT documented as of this encounter Care Teams Senior Business Broker Relationship Specialty Start Date End Date Lashay Farooq FNP [address] [place] [address] PCP - General Family Medicine 03/02/25 documented as of this encounter
--- OUTSIDE RECORDS SUMMARY | 2025-04-23 20:07 | XMS_ITS | Clinical Summary ---
Author Organization [employer] Address [address] [facility] [address] [place] [address] Care Team Providers Care Micro Computer Data Processor Name Role Phone Lashay Farooq OKSANA Primary Care Provider [phone] Allergies No known active allergies Medications fluticasone [...] safe in ) 30 capsule 1 5 Active topiramate (Topamax) 25 MG tablet Take 1 tablet (25 mg) by mouth at bedtime. 30 tablet 11 5 03/14/20 26 Active Active Problems Problem Noted Date Diagnosed Date Hepatic steatosis 03/21/2025 Overview (03/21/2025): Lab Results Component Value Date AST 32 (H) 03/02/2025 ALT 31 03/02/2025 TOTPROTEIN 7.8 03/02/2025 ALB 4.4 03/02/2025 ALP 73 03/02/2025 TOTALBILIRUB 0.3 03/02/2025 - Hepatic steatosis noted on abdominal US 03/19/25 - Encouraged lifestyle interventions BMI 40.0-44.9, adult (CMS/HCC) 03/14/2025 Assessment & Plan (03/14/2025 2:45 PM [...] Psych med prescriber: Nakia Paul APRN, through [facility] - Therapist: pending, intake completed - Cont with hydroxyzine 25mg nightly and gabapentin 600mg TID through psych - Well controlled with current regimen Lumbar radiculopathy 03/02/2025 Resolved Problems Problem Noted Date Diagnosed Date Resolved Date Depression 03/02/2025 03/04/2025 Bipolar affective disorder in remission 03/02/2025 03/04/2025 Encounters Date Type Department Care Team Description 04/23/2025 Orders Only GENERIC EXTERNAL DATA DEPARTMENT Provider, Generic External Data 03/27/2025 Orders Only [facility] [address] [place] [address] Provider, MD Jean Carlos 03/21/2025 Results Follow-Up [facility] [address] [place] [address] Lashay Farooq FNP US Abdomen Limited 03/14/2025 2:00 PM EDT Telemedicine [facility] [address] [place] [address] Lashay Farooq FNP Right upper quadrant abdominal pain (Primary Dx); BMI 40.0-44.9, adult (CMS/HCC) (HCC) 03/14/2025 Travel 03/07/2025 Travel 03/05/2025 Orders Only [facility] [address] [place], [place] [phone] Lashay Farooq FNP 03/05/2025 Telephone [facility] [address] [place] [address] Lashay Farooq FNP Results 03/02/2025 9:00 AM EDT Office Visit [facility] [address] [place] [address] Lashay Farooq FNP Gallstones (Primary Dx); Mood disorder (CMS/HCC); Lumbar radiculopathy; Right upper quadrant abdominal pain; Healthcare maintenance; Infertility counseling; Anemia, unspecified type 03/02/2025 Travel 03/01/2025 Travel 02/23/2025 Patient Outreach [facility] [address] [place] [address] Tal Wagner MD Pre-visit Planning (SDOH screening [...] 03/02/2025 9:10 AM EDT Plan of Treatment Health Maintenance Due Date Last Done Comments Tobacco Screening 2002 Family Planning (PISQ) 2005 HPV Vaccines (1 - 3-dose series) 2005 Hepatitis A Vaccines (1 of 2 - Risk 2-dose series) 2009 Pneumococcal Vaccine: Pediatrics (0 to 5 Years) and At-Risk Patients (6 to 49) Years (1 of 2 - PCV) 2009 Pap Smear 2011 Cervical Cancer Screening 03/09/2023 HPV/Cotest 03/09/2023 03/09/2018, 04/13/2016 COVID-19 Vaccine ( season) 2025 Influenza Vaccine (#1) 2025 8, [...] 75+ series) 2065 IPV Vaccines Completed 09/26/1994, 0306/1991, 1990, Additional history exists Hepatitis B Vaccines [...] Procedure Name Priority Date/Time Associated Diagnosis Comments HCG, TOTAL, QN Routine 04/23/2025 4:22 PM EST MAGNESIUM Routine 04/23/2025 4:22 PM EST COMPREHENSIVE METABOLIC PANEL Routine 04/23/2025 4:22 PM EST CBC WITH AUTO DIFFERENTIAL Routine 04/23/2025 4:22 PM EST US ABDOMEN LIMITED Urgent 03/19/2025 5: 20 PM EDT Right upper quadrant abdominal pain HEPATITIS B SURFACE ANTIGEN, EIA Routine 03/02/2025 [...] Relevant to Health Maintenance Results * (ABNORMAL) CBC auto differential (04/23/2025 4:22 PM EST) Only the most recent of2 resultswithin the time period is included. White Blood Count 14.3(H) 4.8 - 10.8 X10*3/uL [facility] Red Blood Count 4.43 4.20 - 5.50 X10*6/uL [facility] Hemoglobin 12.0 12.0 - 16.0 g/dl [facility] Hematocrit 38.6 37.0 - 47.0 % [facility] Mean Corpuscular Volume 87.1 80.0 - 98.0 fL [facility] Mean Corpuscular Hemoglobin 27.1 27.0 - 33.0 pg [facility] Mean Corpuscular HGB Conc 31.1 31.0 - 35.0 g/dl [facility] Red Cell Distribution Width 13.8 11.0 - 16.0 % [facility] Platelet Count 386 160 - 400 X10*3/uL [facility] Mean Platelet Volume 9.6 9.4 - 12.3 fL [facility] Neutrophils Percent Auto 68.4 45 - 73 % [facility] Imm Gran Pct Auto 0.3 0.0 - 0.4 % [facility] Lymphocytes Percent Auto 23.8 20 - 40 % [facility] Monocytes Percent Auto 5.9 2 - 11 % [facility] Eosinophils Percent Auto 1.2 0 - 4 % [facility] Basophils Percent Auto 0.4 0 - 2 % [facility] NRBC Pct Auto 0.0 0.0 - 0.2 /100WBC [facility] Neutrophils Absolute Auto 9.8(H) 2.0 - 8.3 x10*3/uL [facility] Imm Gran Abs Auto 0.05(H) 0.00 - 0.03 X10*3/uL [facility] Lymphocytes Absolute Auto 3.4 1.2 - 4.9 X10*3/uL [facility] Monocytes Absolute Auto 0.8 0.1 - 1.2 X10*3/uL [facility] Eosinophils Absolute Auto 0.2 0.0 - 0.4 X10*3/uL [facility] Basophils Absolute Auto 0.1 0.0 - 0.2 X10*3/uL [facility] NRBC Abs Auto 0.000 0.0 - 0.012 X10*3/uL [facility] 04/23/2025 4:22 PM EST 04/23/2025 4:36 PM EST us Generic External Data Provider LAB BLOOD ORDERAB LES Final Result [facility] [address] [place] [phone] * hCG, Total, Quantitative (04/23/2025 4:22 PM EST) Only the most recent of2 resultswithin the time period is included. HCG Quantitative <2 mIU/mL [facility] Comment:Weeks post LMP Appro ximate hCG(Last Menstrual Period) Range (mIU/ml)3 - 4 weeks 9 - 1304 - 5 weeks 75 - 2,6005 - 6 weeks 850 - 20,8006 - 7 weeks 4000 - 100,2007 - 12 weeks 11,500 - 289,29899 - 16 weeks 18,300 - 137,14991 - 29 weeks (2nd trimester) 1,400 - 53,17490 - 41 weeks (3rd trimester) 940 - 60,000The Simpson B- hCG assay is used for the early detection ofpregnancy; it cannot be used to diagnose any conditionunrelated to . If a B-hCG level is not supportedby the clinical evidence, results should be confirmed by analternative method (qualitative urine hCG, for example). 04/23/2025 4:22 PM EST 04/23/2025 4:36 PM EST Generic External Data Provider LAB BLOOD ORDERAB LES Final Result Performing Organization Address [facility] Co de Phone Number [facility] [address] [place] [phone] * Magnesium (04/23/2025 4:22 PM EST) Magnesium 2.1 1.6 - 2.6 mg/dL [facility] 04/23/2025 4:22 PM EST 04/23/2025 4:36 PM EST Generic External Data Provider LAB BLOOD ORDERAB LES Final Result Performing Organization Address [facility] de Phone Number [facility] [address] [place] [phone] * (ABNORMAL) Comprehensive Metabolic Panel (04/23/2025 4:22 PM EST) Only the most recent of2 resultswithin the time period is included. Sodium 141 135 - 145 mmol/L [facility] Potassium 3.9 3.3 - 5.1 mmol/L [facility] Chloride 109(H) 96 - 108 mmol/L [facility] Carbon Dioxide 25 22 - 29 mmol/L [facility] Anion Gap 11(L) 12 - 20 [facility] Urea Nitrogen (BUN) 12 9 - 16 mg/dL [facility] Creatinine, Serum 0.65 0.5 - 1.4 mg/dL [facility] Creatinine Clr Calc Pharmacy 148.8 [facility] Comment:Provided height and weight: 165.1 cm,109.6 kg.eGFR (calculated from the MDRD study equation) and eCrCl(calculated from the Cockcroft-Gault equation) are based ondifferent parameters and may not yield comparable results.If eCrCl result is absurd, please check patient'sheight/weight. Estimated Glomerular Filt Rate >60 [facility] Comment:Chronic Kidney Disea se: Estimated GFR < 60 mL/min/1.90i3Ahfvfv Kidney Disease: Estimated GFR < 15 mL/min/1.73m2 Glucose 93 60 - 115 mg/dL [facility] Calcium 9.4 8.4 - 10.2 mg/dL [facility] Bilirubin, Total 0.3 0.0 - 1.0 mg/dL [facility] Aspartate Amino Transferase 21 5 - 31 U/L [facility] Alanine Aminotransferase 22 0 - 31 U/L [facility] Total Protein 7.3 6.5 - 8.0 g/dL [facility] Albumin Level 4.2 3.5 - 5.0 g/dL [facility] Alkaline Phosphatase 70 39 - 117 U/L [facility] 04/23/2025 4:22 PM EST 04/23/2025 4:36 PM EST us Generic External Data Provider LAB BLOOD ORDERAB LES Final Result Performing Organization Address City/State/[facility] Co de Phone Number [facility] [address] [place] [phone] * US Abdomen Limited (03/19/2025 5:20 PM EDT) Anatomical Region Laterality Modality Abdomen Ultrasound 03/19/2025 5:20 PM EDT Narrative 03/19/2025 5:21 PM EDT [address] [address] Ultrasound Report Signed Patient: Cindy Medel MR#: [id number] : 1990 Acct:[id number] Age/Sex: 35 / F ADM Date: 03/19/25 Loc: HO.US Attending Dr: Lashay GANDHI Ordering Physician: Lashay Farooq Date of Service: 03/19/25 Procedure(s): US abdomen limited Accession Number(s): [id number] cc: Lashay Farooq Reason for Exam: RUQ abd pain, r/o cholecystitis CLINICAL HISTORY: RUQ abd pain, r o cholecystitis US abdomen limited Comparison: US/SR - US ABDOMEN LIMITED - 06/30/22 10:[address] - CT ABDOMEN PELVIS WITH IV CONTRAST - 06/30/22 09:25 EST Findings: The visualized pancreas is normal. The liver is normal in size with increase of echogenicity. There is no intrahepatic bile duct dilatation. The common duct is 3.0 mm in diameter. There are gallstones in the gallbladder. There is no sonographic Centeno sign. The main portal vein is antegrade. The right kidney is 11 cm in length. No ascites. IMPRESSION: Cholelithiasis. Hepatic steatosis. This document has been electronically signed by: Nicki Cordova MD on 03/19/2025 17:20:19 Dictated By: Nicki Cordova MD Signed By: <Electronically signed by Nicki Cordova MD in OV> 03/19/25 1721 DD/ 172 TD/TT: 03/19/25 1720 Cushion Sewer: Procedure Note Donotuseinterpreter, Image - 03/19/2025 [place] [id number] Ultrasound Report Signed Patient: Aurora Medel#: [id number] : 1990Acct:[id number] Age/Sex: 35 / FADM Date: 03/19/25 Loc: HO.US Attending Dr: Lashay GANDHI Ordering Physician: Lashay Farooq Date of Service: 03/19/25 Procedure(s): US abdomen limited Accession Number(s): [id number] cc: Lashay Farooq Reason for Exam: RUQ abd pain, r/o cholecystitis CLINICAL HISTORY: RUQ abd pain, r o cholecystitis US abdomen limited Comparison: US/SR - US ABDOMEN LIMITED - 06/30/22 10:[address] - CT ABDOMEN PELVIS WITH IV CONTRAST - 06/30/22 09:25 EST Findings: The visualized pancreas is normal. The liver is normal in size with increase of echogenicity. There is no intrahepatic bile duct dilatation. The common duct is 3.0 mm in diameter. There are gallstones in the gallbladder. There is no sonographic Centeno sign. The main portal vein is antegrade. The right kidney is 11 cm in length. No ascites. IMPRESSION: Cholelithiasis. Hepatic steatosis. This document has been electronically signed by: Nicki Cordova MD on 03/19/2025 17:20:19 Dictated By: Nicki Cordova MD Signed By: <Electronically signed by Nicki Cordova MD in OV> 03/19/25 172 DD/ 172 TD/TT: 03/19/251719 Cushion Sewer: us Lashay GANDHI IMG US PROCEDURES Final Result * TSH with Reflex to Free T4 (03/02/2025 10:10 AM EDT) TSH reflex Free T4 0.77 0.32 - 4.0 uIU/mL [facility] Blood 03/02/2025 10:1 0 AM EDT 03/02/2025 2:25 PM EDT us Lashay GANDHI LAB BLOOD ORDERABLES Final Res ult [facility] [address] [place] [phone] * Hepatitis C Viral RNA, Quantitative, Real-Time PCR (03/02/2025 10:10 AM EDT) Hepatitis C Viral Load <15 NOT DETECTED NOT DETECTED IU/mL [facility] HCV Log PCR <1.18 NOT DETECTED NOT DETECTED Log IU/mL [facility] Comment:For additional infor brianna, please refer tohttp://education.Written/faq/YHW74d9(This link is being provided for informational/educational purposes only.)THIS TEST WAS PERFORMED AT:[employer] [place] [phone] JIMENEZ MD Blood 03/02/2025 10:1 0 AM EDT 03/02/2025 2:25 PM EDT Lashay Farooq [facility] LAB BLOOD ORDERABLES Final Res ult Performing Organization Address [facility] de Phone Number [facility] [address] [place] [phone] * Hepatitis B surface antigen, EIA (03/02/2025 10:10 AM EDT) Hepatitis B Surface Ag Negative Negative [facility] Blood Venous blood specimen / Unknown 03/02/2025 10:10 AM EDT 03/02/2025 2:25 PM EDT Lashay Farooq [facility] LAB BLOOD ORDERABLES Final Res ult Performing Organization Address [facility] de Phone Number [facility] [address] [place] [phone] * Hepatitis B Core Antibody, Total (03/02/2025 10:10 AM EDT) Pathologist [facility] Hepatitis B Core Antibody Nonreactive Nonreactive [facility] Blood Venous blood specimen / Unknown 03/02/2025 10:10 AM EDT 03/02/2025 2:25 PM EDT Lashay Farooq [facility] LAB BLOOD ORDERABLES Final Res ult Performing Organization Address [facility] de Phone Number [facility] [address] [place] [phone] * RPR (Monitor) with Reflex to??Titer (03/02/2025 10:10 AM EDT) RPR (Monitor) w/Refl Titer NON-REACTI VE NON-REACT NAHEED [facility] Comment:THIS TEST WAS PERFOR MED AT:[facility] [address] [phone] JIMENEZ MD Rapid Plasma Reagin Ab Titer TNP [facility] Blood Venous blood specimen / Unknown 03/02/2025 10:10 AM EDT 03/02/2025 2:25 PM ED[address] Lashay Farooq [facility] LAB BLOOD ORDERABLES Final Res ult Performing Organization Address City/[facility]/ZIP Co de Phone Number [facility] [address] [place] [phone] * HIV-1/2 Antigen and Antibodies, Fourth Generation, with Reflexes (03/02/2025 10:10 AM EDT) [facility] HIV AB/AG Nonreactive Nonreactive [facility] Comment:HIV-1 p24 Ag and/or HIV-1/HIV-2 Ab not detected.A test result that is nonreactive does not exclude thepossibility of exposure to or infection with HIV-1 and/orHIV-2. Nonreactive results in this assay for individualswith prior exposure to HIV-1 and/or HIV-2 may be due toantigen and antibody levels that are below the limit ofdetection of this assay.The [employer] HIV Ag/Ab Combo assay result andsupplemental assay results should be interpreted inconjunction with the patient's clinical presentation,history and other laboratory results. If the results areinconsistent with clinical evidence, additional testing issuggested to confirm the result. Blood Venous blood specimen / Unknown 03/02/2025 10:10 AM EDT 03/02/2025 2:25 [address] Lashay Farooq [facility] LAB BLOOD ORDERABLES Final Res ult Performing Organization Address City/[facility]/ZIP Co de Phone Number [facility] [address] [place] [phone] * Hepatitis B Surface Antibody, Qualitative (03/02/2025 10:10 AM EDT) ~Hepatitis B Surface Antibody NONREACTIVE Nonreactive [facility] Comment:Nonreactive: < 8.00 mIU/mL Blood Venous blood specimen / Unknown 03/02/2025 10:10 AM EDT 03/02/2025 2:25 PM EDT Lashay Farooq [employer] LAB BLOOD ORDERABLES Final Res ult Performing Organization Address [facility] Co de Phone Number [facility] [address] [place] [phone] * Hemoglobin A1c (03/02/2025 10:10 AM EDT) Pathologist [facility] Hemoglobin A1c 5.2 <6.0 % [facility] Comment:Hemoglobin A1C Refer ence Range Adults: 4.8 - 6.0 % Non diabetic: < 6.0 % Goal: < 7.0 %Additional Action Suggested: > 8.0 %Note: Hemoglobin A1c results are invalid for patients with abnormal amounts of HbF. Blood transfusions may impact the HbA1c concentration in the patient sample. Estimated Average Glucose 103 mg/dL [facility] Comment:eAG = Estimated ave rage glucose which is %A1C expressed asaverage glucose, using the formula of the X7R-TrmqlsfOmxinfw Glucose study (ADAG), Diabetes Care, Vol.31,#8,Jan. 2007 Blood Venous blood specimen / Unknown 03/02/2025 10:10 AM EDT 03/02/2025 2:25 PM EDT Lashay Farooq [facility] LAB BLOOD ORDERABLES Final Res ult Performing Organization Address City/[facility]/ZIP Co de Phone Number [facility] [address] [place] [phone] * (ABNORMAL) Lipid Panel, Standard (03/02/2025 10:10 AM EDT) Triglycerides 118 <150 mg/dL [facility] Comment:Desirable Triglyceri de: less than 150 mg/dLBorderline High Triglyceride 150-199 mg/dLHigh Triglyceride: 200-499 mg/dLVery High Triglyceride: greater than or equal to 5OO mg/dL Cholesterol 183 <200 mg/dL [facility] Comment:Desirable Cholestero l: less than 200 mg/dLBorderline High Cholesterol: 200-239 mg/dLHigh Cholesterol: greater than 239 mg/dL LDL Cholesterol Calculated 114(H) <100 mg/dL [facility] Comment:Desirable LDL: less than 100 mg/dLNear Optimal/Above Optimal LDL: 110- 129 mg/dLBorderline High LDL: 130-159 mg/dLHigh LDL: 160-189 mg/dLVery High LDL: greater than or equal to 190 mg/dL HDL Cholesterol 46 >40 mg/dL [facility] Comment:Desirable HDL: great er than 40 mg/dL Note: This HDL assay may give artificially low results in patients with liver disease. Blood Venous blood specimen / Unknown 03/02/2025 10:10 AM EDT 03/02/2025 2:25 [address] Lashay Farooq [facility] LAB BLOOD ORDERABLES Final Res ult [facility] [address] [place] [address] [phone] * (ABNORMAL) HPV mRNA E6/E7 (03/09/2018 10:50 AM EDT) HPV mRNA E6/E7 DETECTED (AA) NOT DETECTED [facility] Comment: This test was performed using the APTIMA(R) HPV Assay ([employer] This assay detects E6/E7 viral messenger RNA (mRNA) from 14 high-risk HPV types (16,18,31,33,35,39,45,51, 52,56,58,59,66,68). For additional information please refer to: http://education.Written/faq/TPX293w2 (This link is being provided for informational/ educational purposes only.) The analytical performance characteristics of this assay have been determined by [facility] [place], [place]. The modifications have not been cleared or approved by the FDA. This assay has been validated pursuant to the CLIA regulations and is used for clinical purposes. Test Performed by [facility], [address] [place] [address] Jaswinder Leary M.D., Ph.D., Director of Laboratories , CLIA [id number] Please note: Effective 02/24/2016, HPV testing will be performed using [employer]'s APTIMA test which targets mRNA. Detecting mRNA instead of DNA, as in older methods, offers significant improvements in specificity. 03/09/2018 10:5 0 AM EDT us Karina Martins CNM HISTORICAL/NON ORDERABLE LABS Final Result [facility] Anywhere [address] from Last 3 Months or Most Recently Relevant to Health Maintenance Insurance [facility] < [address] [place] [id number] Care Teams [employer] Computer Data Processor Relationship Specialty Start Date End Date Lashay Farooq FNP [address] [place] [address] PCP - General Family Medicine 03/02/25
[2025-04-23 21:30] LABS: Appearance Urine Cloudy; Glucose Urine UA Negative (Negative); PH 5.5 (5.0-9.0); Specific Gravity - Urine 1.015 (1.005-1.025); UMIC TRIGGER UACC YES
[2025-04-23 21:47] LABS: UACC Culture Trigger YES
[2025-04-23 22:32] VITALS: BP 125/73; PULSE 93; RESP 16; TEMP 36.6; O2SAT 98
[2025-04-24 08:37] LABS: CT PCR Urine NOT DETECTED (Not Detect.); NG PCR Urine NOT DETECTED (Not Detect.)
== END 2025-04-23 22:32 | disposition home or self-care (01) ==
PROVIDERS: Physician Assistant Medical; Emergency Provider Emergency Medicine; PCP Registered Nurse
DX: N39.0 Urinary tract infection, site not specified (principal); R10.9 Unspecified abdominal pain
CPT/HCPCS: 36415; 80053; 81001; 83735; 84702; 85025; 87086; 87088; 87186; 87491; 87591; 96372; 99284; J1885